=== PATIENT | female | born 1955 | race Caucasian/White ===

== ENCOUNTER 2016-09-24 21:04 | Inpatient (IN) | payer MEDICAID ==
[~2016-09-24] VITALS: Ht 167.6 cm; Wt 71.7 kg
[2016-09-24] MEDS ORDERED: LORAZEPAM 2 MG/ML VIAL IV PRN (22:45)
[2016-09-24] MEDS ORDERED: HALOPERIDOL LACT 5 MG/ML VIAL. IVP PRN (22:45)
[2016-09-24] MEDS: IV NORMAL SALINE 1000ML BAG 1,000 ML IV SCH (22:45)
[2016-09-24] MEDS ORDERED: RISP1TAB3 PO (23:14)
[2016-09-24] MEDS ORDERED: FLUC100T4 PO (23:14)
[2016-09-24] MEDS ORDERED: IBUP-1007 PO (23:14)
[2016-09-24] MEDS ORDERED: HALO10TA PO (23:14)
[2016-09-24] MEDS ORDERED: MULT-460 PO (23:14)
[2016-09-24] MEDS ORDERED: CLON1TAB3 PO (23:14)
[2016-09-24] MEDS ORDERED: HALO5TAB PO (23:14)
[2016-09-24] MEDS ORDERED: DIVA500T4 PO (23:14)
[2016-09-24 23:30] VITALS: BP 121/63
[2016-09-25 02:38] VITALS: BP 121/59
[2016-09-25] MEDS ORDERED: LORAZEPAM 2 MG/ML VIAL IM PRN (04:45)
[2016-09-25] MEDS ORDERED: HALOPERIDOL LACT 5 MG/ML VIAL. IM PRN (04:45)
[2016-09-25 07:00] VITALS: BP 147/70
[2016-09-25] MEDS ORDERED: ACETAMINOPHEN 325 MG TABLET. PO PRN ×2 (10:00→11:30)
[2016-09-25] MEDS ORDERED: ALBUTEROL SULFATE 2.5 MG/3 ML NEBU. NEB PRN (10:00)
[2016-09-25] MEDS ORDERED: ONDANSETRON PF 4 MG/2 ML VIAL. IV PRN (10:00)
[2016-09-25] MEDS ORDERED: hydrALAZINE 20 MG/ML VIAL. IVP PRN (10:00)
[2016-09-25] MEDS ORDERED: HYDROCODONE/APAP 5/325MG TABLET. PO PRN (10:00)
--- NOTE | 2016-09-25 11:11 | PDOC1 ---
History and Physical Source Source: Chart review History of Present Illness History of Present Illness A 60 Female with hx of PSYCHOSIS was trasfered from [facility] ER for oncology consultation, Pt was seen in the ER for psychosis and agitation, Pt has hx of schizophrenia, with active psychosis, and agitation. Labs in the ER showed WBC high > 112k, with lymphocytosis, so transferred to [facility] for oncology consultation. At the time of my exam this morning, she is not cooperative, agitation, " leave me alone. Chart reviewed, d/w RN, and d/w Dr Dickerson. She doesn 't need any active treatment for leucocytosis, need out pt treatment once psychosis is managed. Past Medical History Psych: Schizophrenia Social History Smoke: No Current Problem List Problem List Problems Medical Problems: (1) Leucocytosis Status: Acute Current Medications Current Medications Current Medications Medications (Trade) Dose Ordered Sig/Ciara Start Time Stop Time Status Last Admin Dose Admin Acetaminophen (Tylenol) 325 mg PRN Q6HRS PRN 09/25/16 10:00 Acetaminophen/ Hydrocodone Bitart (Lortab 5/325) 1 tab PRN Q6HRS PRN 09/25/16 10:00 Albuterol Sulfate (Ventolin Neb Soln) 2.5 mg PRN Q4HRS PRN 09/25/16 10:00 Haloperidol Lactate (Haldol) 5 mg PRN Q8HRS PRN 09/25/16 04:45 Hydralazine HCl (Apresoline) 10 mg PRN Q4HRS PRN 09/25/16 10:00 Lorazepam (Ativan) 2 mg PRN Q4HRS PRN 09/25/16 04:45 Ondansetron HCl (Zofran) 4 mg PRN Q8HRS PRN 09/25/16 10:00 Sodium Chloride (Iv Sodium Chloride 0.9% 1000ml Bag) 1,000 ml @ 75 mls/hr [id number] 09/24/16 22:45 Allergies Allergies Allergies Coded Allergies Type Severity Reaction Last Updated Verified Penicillins Allergy Intermediate 09/24/16 Yes fluphenazine Allergy Intermediate 09/24/16 Yes lithium Allergy Intermediate 09/24/16 Yes ROS Review of System headaches, agitation, no fever no chills no chest pain not able to get more than this. Physical Exam Physical Exam GEN.: No apparent distress. Alert non cooperative HEENT: Head is normocephalic, NECK: Supple. LUNGS: Clear to auscultation. HEART: RRR, S1, S2 present. Peripheral pulses intact ABDOMEN: Soft, NEUROLOGIC: PSYCHIATRIC: psychosis SKIN: Vitals Vitals Vital Signs Date Time Temp Pulse Resp B/P Pulse Ox O2 Delivery O2 Flow Rate FiO2 09/25/16 08:00 Room Air 09/25/16 07:00 98.4 70 18 147/70 98 98.4 VTE Prophylaxis Ordered VTE Prophylaxis Devices: Yes VTE Pharmacological Prophylaxi: No Assessment/Plan Assessment/Plan Schizophrenia with active psychosis CLL Mild hyponatremia Plan 1-1 sitter PRN Haldol need inpt psychiatry placement medically stable for transfer, d/w Dr Dickerson, out pt follow up for CLL once psychosis is treated and stabilized labs reviwed from [place] Prognosis guarded. . INGRID FLORIAN MD Sep 25, 2016 11:11
[2016-09-25] MEDS ORDERED: IBUPROFEN 200 MG TABLET PO PRN (11:45)
[2016-09-25] MEDS: IV NORMAL SALINE 1000ML BAG 1,000 ML IV SCH (12:00)
--- NOTE | 2016-09-25 12:57 | PDOC ---
Provider Note Provider Note Onc consult coovbmfr- [id number] 1. CLL with rapid doubling time, otherwise asymptomatic. Likely will need tx initiated in future, but active psychosis is much more pressing issue. No pressing need to start now. Consider ibrutinib as outpt, which could be given po at her facility. I am concern about her repeated missed appts because of psych issues and do not think chemo is safe to give. Will f/u as outpt. 2. Active psychosis, schizophrenia- Must be more stable before can begin tx. D/W Dr. Raines. LORA HOBSON DO Sep 25, 2016 12:57
--- NOTE | 2016-09-25 16:03 | CONS ---
DATE OF CONSULTATION: 09/25/2016 REFERRING PROVIDER: Roge Spangler M.D. REASON FOR CONSULTATION: CLL. HISTORY OF PRESENT ILLNESS: The patient is a 60-year-old female who I have seen in clinic two times for her history of CLL. She was diagnosed in 2007 with Manriquez stage 0. She has very mild thrombocytopenia, which is likely not related to the CLL and that has remained stable. She has a strong history of schizophrenia and is living in a facility for this. She has had repeated admissions for active psychoses and is therefore missed several oncology appointments with me. Her last appointment was on 08/22/2016, when I noted that she was having a fairly impressive rapid WBC doubling time. Her white blood cell count 1 month ago was 66, hemoglobin 12.5, and platelets 106. She presented to the [facility] Emergency Room last night and was noted to have a WBC of 112. Her hemoglobin and platelets remained stable. Her platelet count is now 134. She is actively psychotic again. Dr. Spangler is trying to transfer her to for inpatient psychiatric admission again. Upon seeing her in her room, she denies having a history of CLL. She states that her blood counts are low. She refuses to answer many of my questions saying "no comments." Clinically, she overall appears stable otherwise from her last him in my clinic. PAST MEDICAL HISTORY: Anxiety, schizophrenia, and CLL. PAST SURGICAL HISTORY: She denies any history. FAMILY HISTORY: She denies any health problems in her siblings or parents. SOCIAL HISTORY: She has smoked a 1/4 pack a day for 20 years. She tries to smoke "as often as she can" [place] [facility] [place]. [place] live [place] [facility] [place], but has had several admissions for active psychiatric issues. She denied any alcohol, use to me previously in clinic. ALLERGIES: PENICILLINS, FLUPHENAZINE, AND LITHIUM. CURRENT MEDICATIONS: Tylenol, Lortab, albuterol, Haldol, hydralazine, Motrin, Ativan, and Zofran. REVIEW OF SYSTEMS: Ten point review of systems attempted, but rather limited due to her active psychotic state. She says she is very fatigued and overall have weakness. She has not had any fevers or chills. She refused to answer any other questions. PHYSICAL EXAMINATION: VITAL SIGNS: Temperature 97.5, pulse 59, respiratory rate 18, blood pressure 147/70, and 98% O2 on room air. GENERAL: She appears alert. She is not in any distress at this time. HEENT: No scleral icterus. Mucous membranes are moist. CARDIOVASCULAR: Heart is regular in rate. PULMONARY: No respiratory distress. ABDOMEN: No distention. EXTREMITIES: No edema. NEUROLOGIC: No focal cranial nerve deficits site. PSYCHIATRIC: Actively psychotic, refusing to answer questions, denying known health history issues. Nursing notes reviewed, where she has previously refused to get out of the shower as well. IMAGING AND LABS: Pertinent CBC findings reviewed as above. CMP notable for sodium of 124. ASSESSMENT AND PLAN: The patient is a 60-year-old female with the following medical problems: 1. Chronic lymphocytic leukemia with rapid doubling time. She likely will need some form of treatment in the future, but there is no imminent need to start it immediately. Most likely, I would recommend starting ibrutinib as this could be orally administered at her facility. I am concerned if we give her any chemotherapy, she will be lost to follow up again and will not have adequate followup care in our clinic to assess for toxicity and future cycles of chemotherapy. The oral medication would be continued daily until progression or intolerance and is overall fairly well tolerated. However, again, her active psychotic issues must be more stable before beginning any treatment. 2. Schizophrenia with active psychoses. We are trying to transfer her to Inpatient Psychiatric Unit. Thank you for alerting me of her admission. We will plan to follow up with her when she is stable as an outpatient to initiate ibrutinib at that time. Discussed with Dr. Spangler. LORA HOBSON DO DR: LEIGH/paulino JOB#: [id number] / [id number] MTDD
[2016-09-25 19:00] VITALS: BP 120/72
[2016-09-25] MEDS ORDERED: LORAZEPAM 1 MG TABLET. PO PRN (19:45)
[2016-09-25] MEDS ORDERED: wellbutrin (20:48)
[2016-09-25] MEDS: HALOPERIDOL 5 MG TABLET PO PRN (21:53)
--- NOTE | 2016-09-25 22:38 | DS ---
DATE OF DISCHARGE: 09/25/2016 DISCHARGE DIAGNOSES: 1. Reactive psychosis with history of schizophrenia. 2. CLL. 3. Mild hyponatremia. BRIEF HOSPITAL COURSE: This 60-year-old female with prior history of schizophrenia and CLL, which was diagnosed in 2007 and she has been following oncology; however, the patient has strong history of schizophrenia and yesterday, the patient was at [place] ER for geropsychiatric admission. However, ER physician ordered labs which showed WBC is more than 112,000 and she has been transferred to [facility] for further evaluation by oncology. At the time of my examination this morning, the patient's psychosis is not letting me examine and not able to provide any good history. Most of the history obtained from the records and nursing staff. After my discussion with Dr. Dickerson, the patient needs to be transferred to the psychiatric facility for active treatment of psychosis and Dr. Dickerson would like to see her in the clinic. At this time, the patient is not a candidate to get any treatment, which will further complicate her psychological condition. I think the patient can be transferred to oncology clinic once the patient's mental status has been improved and psychosis has been controlled. At this time, she has been stable to go to inpatient psychiatric facility. Above has been discussed with immigration case worker and nurse and she will be transferred as soon as bed available. DISCHARGE MEDICATIONS: Reviewed and reconciled. Please see MRAD. DISCHARGE CONDITION: Stable. PROGNOSIS: Guarded. FOLLOWUP: With Dr. Dickerson in clinic once psychosis has been treated and stable. INGRID FLORIAN MD DR: IVONNE/paulino JOB#: [id number] / [id number] MTDD
[2016-09-26] MEDS: IV NORMAL SALINE 1000ML BAG 1,000 ML IV SCH (01:25)
[2016-09-26] MEDS: HALOPERIDOL 5 MG TABLET PO PRN (09:35)
[2016-09-26] MEDS ORDERED: ASPIRIN 325 MG TABLET PO ONE (10:15)
[2016-09-26 10:51] VITALS: BP 155/84
--- NOTE | 2016-09-26 15:16 | PDOC ---
PROGRESS NOTES Chief Complaint Chief Complaint 1. Reactive psychosis with history of schizophrenia. 2. CLL. 3. Mild hyponatremia. Plan no further work up needed from oncology 1-1 sitter transfer to in psychiatry no labs today History of Present Illness History of Present Illness no fever no chills no acute events Vitals Vitals Vital Signs Date Time Temp Pulse Resp B/P Pulse Ox O2 Delivery O2 Flow Rate FiO2 09/26/16 10:51 87 16 155/84 Room Air 09/25/16 19:00 98.0 98 98.0 Physical Exam General: Alert, Cooperative Lungs: Other (normal air flow) Extremities: No clubbing, No cyanosis Skin: No rashes, No breakdown Assessment and Plan Assessmemt and Plan Problems Medical Problems: (1) Leucocytosis Status: Acute (2) Leukocytosis, unspecified Status: Acute (3) 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 Medications Current Medications Sodium Chloride (Iv Sodium Chloride 0.9% 1000ml Bag) 1,000 ml @ 75 mls/hr [id number] IV ; Start 09/24/16 at 22:45; Stop 09/26/16 at 14:43; Status DC Lorazepam (Ativan) 2 mg PRN Q4HRS PRN IV ANXIETY / AGITATION Last administered on 09/25/16 04:39; Start 09/24/16 at 22:45; Stop 09/26/16 at 14:43; Status DC Haloperidol Lactate (Haldol) 5 mg PRN Q8HRS PRN IVP AGITATION; Start 09/24/16 at 22:45; Stop 09/26/16 at 14:43; Status DC Haloperidol Lactate (Haldol) 5 mg PRN Q8HRS PRN IM AGITATION Last administered on 09/25/16 11:59; Start 09/25/16 at 04:45; Stop 09/26/16 at 14:43; Status DC Lorazepam (Ativan) 2 mg PRN Q4HRS PRN IM ANXIETY / AGITATION; Start 09/25/16 at 04:45; Stop 09/26/16 at 14:43; Status DC Acetaminophen (Tylenol) 325 mg PRN Q6HRS PRN PO MILD PAIN / TEMP; Start at 10:00; Stop 09/25/16 at 11:26; Status DC Acetaminophen/ Hydrocodone Bitart (Lortab 5/325) 1 tab PRN Q6HRS PRN PO MODERATE TO SEVERE PAIN; Start 09/25/16 at 10:00; Stop 09/26/16 at 14:43; Status DC Hydralazine HCl (Apresoline) 10 mg PRN Q4HRS PRN IVP ELEVATED BP, SEE COMMENTS ; Start 09/25/16 at 10:00; Stop 09/26/16 at 14:43; Status DC Ondansetron HCl (Zofran) 4 mg PRN Q8HRS PRN IV NAUSEA/VOMITING; Start 09/25/16 at 10:00; Stop 09/26/16 at 14:43; Status DC Albuterol Sulfate (Ventolin Neb Soln) 2.5 mg PRN Q4HRS PRN NEB SHORTNESS OF BREATH; Start 09/25/16 at 10:00; Stop 09/26/16 at 14:43; Status DC Acetaminophen (Tylenol) 650 mg PRN Q6HRS PRN PO MILD PAIN / TEMP; Start at 11:30; Stop 09/26/16 at 14:43; Status DC Ibuprofen (Motrin) 200 mg PRN Q4HRS PRN PO INFLAMMATION Last administered on 21:53; Start 09/25/16 at 11:45; Stop 09/26/16 at 14:43; Status DC Lorazepam (Ativan) 2 mg PRN Q4HRS PRN PO ANXIETY / AGITATION Last administered on 09/25/16 21:52; Start 09/25/16 at 19:45; Stop 09/26/16 at 14:43; Status DC Haloperidol (Haldol) 5 mg PRN Q8HRS PRN PO PSYCHOSIS Last administered on 09:35; Start 09/25/16 at 19:45; Stop 09/26/16 at 14:43; Status DC Aspirin (Meghna Aspirin) 325 mg 1X ONCE PO Last administered on 09/26/16 10:23 ; Start 09/26/16 at 10:15; Stop 09/26/16 at 10:16; Status DC Active Scripts Active Reported [wellbutrin] Risperidone 1 Mg Tablet 1 Mg PO DAILY Depakote Er (Divalproex Sodium) 500 Mg Tab.er.24h 1 Tab PO HS Fluconazole 100 Mg Tablet 1.5 Tab PO DAILY Multiple Vitamin (Multivitamin With Minerals) 1 Each Tablet 1 Each PO Ibuprofen 600 Mg Tablet 600 Mg PO PRN Q6HRS PRN Haloperidol 10 Mg Tablet 1 Tab PO QHS Haloperidol 5 Mg Tablet 1 Tab PO BID take 0800 and 1200 Clonazepam 1 Mg Tablet 1 Tab PO BID Vitals/I & O Vital Sign - Last 24 Hours 09/25/16 09/25/16 09/26/16 09/26/16 19:00 20:00 08:00 10:51 Temp 98.0 98.0 Pulse 68 87 Resp 18 16 B/P 120/72 155/84 Pulse Ox 98 O2 Delivery Room Air Room Air Room Air Room Air Intake and Output 09/25/16 09/25/16 09/26/16 15:00 23:00 07:00 Intake Total 1640 ml 920 ml Output Total 1 ml Balance 1640 ml 919 ml INGRID FLORIAN MD Sep 26, 2016 15:16
== END 2016-09-26 13:00 | DRG 641 ==
LOC: 6 SOUTH 22:32
PROVIDERS: ADMIT Internal Medicine; ATTEND Internal Medicine
DX: E87.1 Hypo-osmolality and hyponatremia (principal); C91.10 Chronic lymphocytic leukemia of B-cell type not having achieved remission; D69.6 Thrombocytopenia, unspecified; F91.9 Conduct disorder, unspecified; F41.9 Anxiety disorder, unspecified; Z79.899 Other long term (current) drug therapy; Z87.891 Personal history of nicotine dependence; Z88.8 Allergy status to other drugs, medicaments and biological substances; Z88.1 Allergy status to other antibiotic agents; Z88.0 Allergy status to penicillin; F25.9 Schizoaffective disorder, unspecified
CPT/HCPCS: 94760; J1630; J2060

== ENCOUNTER 2017-09-30 16:15 | Inpatient (IN) | payer MEDICAID ==
[2017-09-30 17:21] LABS: INFLUENZA A PATIENT NEGATIVE (NEGATIVE); INFLUENZA B PATIENT NEGATIVE (NEGATIVE); OBC FLU VALID
[2017-09-30] MEDS: IV NORMAL SALINE 1000ML BAG 1,000 ML IV ×4 (17:52→19:31)
[2017-09-30 18:21] LABS: BASO # 0.5 x10^3/uL (0.0-0.2); BASO % 0 % (0-3); EOS # 0.4 x10^3/uL (0.0-0.7); EOS % 0 % (0-3); HEMOGLOBIN 10.9 g/dL (12.0-15.5); LYMPH # 219.3 x10^3/uL (1.0-4.8); LYMPH % 85 % (24-48); MEAN CORPUSCULAR HEMOGLOBIN 28 pg (25-35); MEAN CORPUSCULAR HGB CONC 33 g/dL (31-37); MEAN CORPUSCULAR VOLUME 84 fL (79-100); MONO # 0.3 x10^3/uL (0.0-1.1); MONO % 0 % (0-9); NEUT # 39.1 x10^3uL (1.8-7.7); NEUT % 15 % (31-73); PLATELET COUNT 293 x10^3/uL (140-400); RED BLOOD COUNT 3.95 x10^6/uL (3.50-5.40)
[2017-09-30 18:26] LABS: WHITE BLOOD COUNT 259.6 x10^3/uL (4.0-11.0)
[2017-09-30 18:36] LABS: ADD MAN DIFF? YES
[2017-09-30 18:50] LABS: TROPONINI < 0.017 ng/mL (0.000-0.055)
[2017-09-30 18:51] LABS: LACTIC ACID 1.5 mmol/L (0.4-2.0)
[2017-09-30 18:57] LABS: ALBUMIN 2.4 g/dL (3.4-5.0); ALBUMIN/GLOBULIN RATIO 0.6 (1.0-1.7); ALK PHOS 295 U/L (46-116); ALT (SGPT) 136 U/L (14-59); ANION GAP 11 (6-14); AST (SGOT) 128 U/L (15-37); BILIRUBIN,URINE NEGATIVE (NEG); BLOOD UREA NITROGEN 17 mg/dL (7-20); BUN/CREATININE RATIO 21 (6-20); CARBON DIOXIDE 22 mmol/L (21-32); CHLORIDE 87 mmol/L (98-107); CLARITY,URINE CLEAR; COLOR,URINE YELLOW; CREATININE 0.8 mg/dL (0.6-1.0); GFR 72.7; GLUCOSE 243 mg/dL (70-99); GLUCOSE,URINE >=1000 mg/dL (NEG); NITRITE,URINE NEGATIVE (NEG); POTASSIUM 4.2 mmol/L (3.5-5.1); PROTEIN,URINE 100 mg/dL (NEG-TRACE); TOTAL BILIRUBIN 1.3 mg/dL (0.2-1.0); TOTAL PROTEIN 6.7 g/dL (6.4-8.2)
[2017-09-30 19:06] LABS: SODIUM 120 mmol/L (136-145)
[2017-09-30] MEDS ORDERED: VANCOMYCIN 1.75 GM in IV DEXTROSE 5% 500 ML IV (19:15)
[2017-09-30] MEDS ORDERED: ONDANSETRON PF 4 MG/2 ML VIAL. IV ×2 (19:15)
[2017-09-30] MEDS ORDERED: VANCOMYCIN PER PHARMACY MC ×2 (19:15)
[2017-09-30 19:16] LABS: % ATYL 5 % (0-0); % LYMPHS 86 % (24-48); % MONOS 1 % (0-10)
[2017-09-30 19:17] LABS: PLT ESTIMATE ADEQUATE (ADEQUATE); SMUDGE CELLS PRESENT
[2017-09-30 19:18] LABS: BACTERIA,URINE 0 /HPF (0-FEW); RBC,URINE 0 /HPF (0-2); SQUAMOUS EPITHELIAL CELL,UR FEW /LPF; WBC,URINE RARE /HPF (0-4)
[2017-09-30 19:19] LABS: AMORPHOUS SEDIMENT,UR PRESENT /HPF; ANISOCYTOSIS SLIGHT
[2017-09-30] MEDS: OSELTAMIVIR 75 MG CAPSULE PO ×2 (19:32)
[2017-09-30] MEDS: ACETAMINOPHEN 500 MG TABLET PO ×2 (19:32)
[2017-09-30] MEDS: MEROPENEM IV Push 1 GM VIAL. IVP ×2 (19:36)
[2017-09-30] MEDS: VANCOMYCIN 1.75 GM in IV DEXTROSE 5 %-0.2 % NACL 500 ML IV (19:39)
[2017-09-30] MEDS: VANCOMYCIN PER PHARMACY MC ×2 (20:55)
[2017-09-30 21:23] LABS: LACTIC ACID 1.1 mmol/L (0.4-2.0)
[2017-09-30] MEDS ORDERED: MEROPENEM 1 GM in IV NORMAL SALINE 100ML 100 ML IV ×4 (22:00)
[2017-10-01] MEDS: MEROPENEM IV Push 1 GM VIAL. IVP ×6 (06:02→22:00)
[2017-10-01 07:22] LABS: ADD MAN DIFF? NO
[2017-10-01 07:51] LABS: BASO # 0.7 x10^3/uL (0.0-0.2); BASO % 0 % (0-3); EOS # 0.3 x10^3/uL (0.0-0.7); EOS % 0 % (0-3); HEMOGLOBIN 10.5 g/dL (12.0-15.5); LYMPH # 184.8 x10^3/uL (1.0-4.8); LYMPH % 76 % (24-48); MEAN CORPUSCULAR HEMOGLOBIN 28 pg (25-35); MEAN CORPUSCULAR HGB CONC 33 g/dL (31-37); MEAN CORPUSCULAR VOLUME 84 fL (79-100); MONO # 8.9 x10^3/uL (0.0-1.1); MONO % 4 % (0-9); NEUT # 48.1 x10^3uL (1.8-7.7); NEUT % 20 % (31-73); PLATELET COUNT 286 x10^3/uL (140-400); RED BLOOD COUNT 3.82 x10^6/uL (3.50-5.40); RED CELL DISTRIBUTION WIDTH 15.8 % (11.5-14.5)
[2017-10-01 07:53] LABS: TROPONINI < 0.017 ng/mL (0.000-0.055)
[2017-10-01 08:03] LABS: WHITE BLOOD COUNT 242.8 x10^3/uL (4.0-11.0)
[2017-10-01 09:57] LABS: % SEGS 8 % (35-66)
[2017-10-01] MEDS: VANCOMYCIN 1 GM in IV DEXTROSE 5% 250 ML IV ×2 (10:16→20:00)
[2017-10-01] MEDS: VANCOMYCIN PER PHARMACY MC ×2 (10:33)
[2017-10-01] MEDS ORDERED: HALOPERIDOL 2 MG TABLET. PO ×2 (22:45)
[2017-10-01] MEDS: LINEZOLID 600 MG TABLET PO ×2 (23:02)
[2017-10-01] MEDS: HALOPERIDOL 5 MG TABLET. PO ×6 (23:02→23:03)
[2017-10-02] MEDS: ACETAMINOPHEN 325 MG TABLET. PO ×2 (01:10)
[2017-10-02] MEDS: MEROPENEM IV Push 1 GM VIAL. IVP ×2 (06:00)
[2017-10-02 08:03] LABS: ALBUMIN 2.5 g/dL (3.4-5.0); ALBUMIN/GLOBULIN RATIO 0.7 (1.0-1.7); ALK PHOS 272 U/L (46-116); ALT (SGPT) 152 U/L (14-59); ANION GAP 12 (6-14); AST (SGOT) 94 U/L (15-37); BLOOD UREA NITROGEN 21 mg/dL (7-20); BUN/CREATININE RATIO 26 (6-20); CALCIUM 8.7 mg/dL (8.5-10.1); CARBON DIOXIDE 23 mmol/L (21-32); CHLORIDE 90 mmol/L (98-107); CREATININE 0.8 mg/dL (0.6-1.0); GFR 72.7; GLUCOSE 307 mg/dL (70-99); SODIUM 125 mmol/L (136-145); TOTAL BILIRUBIN 0.8 mg/dL (0.2-1.0)
[2017-10-02] MEDS: HALOPERIDOL 5 MG TABLET. PO ×4 (09:00→10:55)
[2017-10-02] MEDS ORDERED: ONDANSETRON PF 4 MG/2 ML VIAL. IV ×2 (09:45)
[2017-10-02] MEDS ORDERED: ONDANSETRON ODT 4 MG TAB.RAPDIS. PO ×2 (09:45)
[2017-10-02] MEDS ORDERED: IV NORMAL SALINE 1000ML BAG 1,000 ML IV ×2 (10:00)
[2017-10-02] MEDS: LINEZOLID 600 MG TABLET PO ×2 (10:55)
[2017-10-02] MEDS ORDERED: LACTOBACILLUS RHAMNOSUS GG 1 CAPSULE. PO ×2 (21:00)
[2017-10-02 22:15] LABS: SPECIMEN SOURCE Urine (.); STREP PNEUMO ANTIGEN Positive (Negative)
== END 2017-10-02 14:40 | DRG 871 ==
LOC: ER 16:15 → ED HOLD 19:17 → 6 SOUTH 22:07
DX: A41.9 Sepsis, unspecified organism (principal); E43 Unspecified severe protein-calorie malnutrition; J18.9 Pneumonia, unspecified organism; C91.10 Chronic lymphocytic leukemia of B-cell type not having achieved remission; E86.1 Hypovolemia; E87.1 Hypo-osmolality and hyponatremia; F20.9 Schizophrenia, unspecified; F91.9 Conduct disorder, unspecified; I10 Essential (primary) hypertension; M53.3 Sacrococcygeal disorders, not elsewhere classified; D64.9 Anemia, unspecified; Z79.899 Other long term (current) drug therapy; Z91.19 Patient's noncompliance with other medical treatment and regimen; Z88.0 Allergy status to penicillin; Z88.8 Allergy status to other drugs, medicaments and biological substances; Z68.22 Body mass index [BMI] 22.0-22.9, adult
CPT/HCPCS: 36415; 71046; 74018; 80053; 81001; 83605; 84484; 85007; 85025; 87040; 87205; 87449; 87804; 87804-59; 93005; 96361; 96365; 96375; 99285-25; J2185; J3370; J7030

== ENCOUNTER 2018-01-01 17:48 | Emergency (ER) | payer MEDICAID ==
[2018-01-01 18:33] LABS: BILIRUBIN,URINE NEGATIVE (NEG); CLARITY,URINE CLEAR; COLOR,URINE YELLOW; GLUCOSE,URINE 100 mg/dL (NEG); NITRITE,URINE NEGATIVE (NEG); PH,URINE 5.5; PROTEIN,URINE NEGATIVE (NEG-TRACE); UROBILINOGEN,URINE 0.2 mg/dL (0.2 mg/dL)
[2018-01-01 18:41] LABS: BACTERIA,URINE 0 /HPF (0-FEW); RBC,URINE OCC /HPF (0-2); SQUAMOUS EPITHELIAL CELL,UR OCC /LPF
[2018-01-03 14:30] LABS: CHLAMYDIA PROBE Negative (Negative); GC PROBE Negative (Negative)
== END 2018-01-01 21:00 | disposition home or self-care (01) ==
LOC: ER 17:48
DX: Z71.1 Person with feared health complaint in whom no diagnosis is made (principal); F20.9 Schizophrenia, unspecified (principal); T19.2XXA Foreign body in vulva and vagina, initial encounter; Z88.0 Allergy status to penicillin; Z90.711 Acquired absence of uterus with remaining cervical stump; Z87.440 Personal history of urinary (tract) infections; Z88.8 Allergy status to other drugs, medicaments and biological substances; X58.XXXA Exposure to other specified factors, initial encounter; Y93.89 Activity, other specified; Y92.89 Other specified places as the place of occurrence of the external cause; Y99.8 Other external cause status
CPT/HCPCS: 74018; 81001; 87086; 87491; 87591; 99285; Q0111

== ENCOUNTER 2018-05-16 17:31 | Inpatient (IN) | payer MEDICAID ==
[~2018-05-16] VITALS: Ht 162.6 cm; Wt 56.5 kg
[~2018-05-16 17:31] MED LIST: ACET325T9 PO; CLON1TAB4 PO; DIVA500T4 PO; FLUC100T4 PO; HALO10TA PO; HALO5TAB PO; IBUP-1007 PO; LEVO500T59 PO; LINE600T PO; MAG360OR24 PO; MINE114O TP; MULT-460 PO; NICO2GUM5 BC; ONDA4TAB10 SL; POLY17PO29 PO; RISP1TAB3 PO; wellbutrin
[2018-05-16] MEDS ORDERED: HALOPERIDOL LACTATE 5 MG/ML VIAL. IVP ONE (18:00)
--- NOTE | 2018-05-16 19:11 | PHYS DOC ---
Past Medical History Past Medical History: Constipation, Schizophrenia, UTI, Other Additional Past Medical Histor: MYELODYSPLASTIC SYNDROME, TINEA PEDIS Alcohol Use: None Drug Use: None Adult General Chief Complaint Chief Complaint: PSYCH EVALUATION HPI HPI Patient is a 62 year old female who presents with exacerbation of her schizophrenia. The patient is currently in a psychiatric facility and is on hospice for leukemia. The patient does have a history of aggression with her schizophrenia. Hospice had taken her off of her schizophrenia medications. The patient has not been medicated for months. She is currently very agitated and manic. She is not cooperative and will not allow vital signs to be taken. Review of Systems Review of Systems Constitutional: Denies fever or chills [] Eyes: Denies change in visual acuity, redness, or eye pain [] HENT: Denies nasal congestion or sore throat [] Respiratory: Denies cough or shortness of breath [] Cardiovascular: No additional information not addressed in HPI [] GI: Denies abdominal pain, nausea, vomiting, bloody stools or diarrhea [] : Denies dysuria or hematuria [] Musculoskeletal: Denies back pain or joint pain [] Integument: Denies rash or skin lesions [] Neurologic: Denies headache, focal weakness or sensory changes [] Endocrine: Denies polyuria or polydipsia [] All other systems were reviewed and found to be within normal limits, except as documented in this note. Current Medications Current Medications Current Medications Medications (Trade) Dose Ordered Sig/Ciara Start Time Stop Time Status Last Admin Dose Admin Haloperidol Lactate (Haldol Inj) 5 mg 1X ONCE 05/16/18 18:00 05/16/18 18:01 DC 05/16/18 18:00 5 MG Ziprasidone (Geodon Im) 20 mg 1X ONCE 05/16/18 19:15 05/16/18 19:16 DC 05/16/18 19:15 20 MG Allergies Allergies Allergies Coded Allergies Type Severity Reaction Last Updated Verified Penicillins Allergy Intermediate "it makes me get fevers" last dose age 11 per pt 09/30/17 Yes fluphenazine Allergy Intermediate 09/24/16 Yes lithium Allergy Intermediate 09/24/16 Yes Physical Exam Physical Exam Constitutional: Well developed, well nourished, no acute distress, non-toxic appearance. [] HENT: Normocephalic, atraumatic, bilateral external ears normal, oropharynx moist, no oral exudates, nose normal. [] Eyes: PERRLA, EOMI, conjunctiva normal, no discharge. [] Neck: Normal range of motion, no tenderness, supple, no stridor. [] Cardiovascular:Heart rate regular rhythm, no murmur [] Lungs & Thorax: Bilateral breath sounds clear to auscultation [] Abdomen: Bowel sounds normal, soft, no tenderness, no masses, no pulsatile masses. [] Skin: Warm, dry, no erythema, no rash. [] Back: No tenderness, no CVA tenderness. [] Extremities: No tenderness, no cyanosis, no clubbing, ROM intact, no edema. [] Neurologic: Alert and oriented X 3, normal motor function, normal sensory function, no focal deficits noted. [] Psychologic: The patient is agitated and manic Current Patient Data Vital Signs Vital Signs Date Time Temp Pulse Resp B/P (MAP) Pulse Ox O2 Delivery O2 Flow Rate FiO2 05/16/18 17:31 98.0 100 16 131/73 (92) Room Air 98.0 EKG EKG [] Radiology/Procedures Radiology/Procedures [] Course & Med Decision Making Course & Med Decision Making Pertinent Labs and Imaging studies reviewed. (See chart for details) The patient received 5 mg of Haldol in the emergency department and has 20 mg of Geodon ordered. She has been accepted to Dr. Humphreys's service for admission. Dragon Disclaimer Dragon Disclaimer This electronic medical record was generated, in whole or in part, using a voice recognition dictation system. Departure Departure Impression: Primary Impression: Psychosis in elderly with behavioral disturbance Additional Impression: Schizophrenia Disposition: ADMITTED INPATIENT Admitting Physician: Kristen Humphreys Condition: GUARDED Referrals: VALERIA GARCIA (PCP) Attending Signature Attending Signature I have reviewed the PA/MAINTENANCE PAINTER's note and plan of care. I was available for consultation as needed during the patient's visit in the emergency department. I agree with the clinical impression, plan, and disposition. Problem Qualifiers TONY SOLANO APRN May 16, 2018 19:11 HEIDE ENGEL DO May 18, 2018 04:17
[2018-05-16] MEDS ORDERED: ZIPRASIDONE IM 20 MG VIAL. IM ONE (19:15)
[2018-05-16] MEDS ORDERED: ONDANSETRON ODT 4 MG TAB.RAPDIS. PO PRN (19:45)
[2018-05-16] MEDS ORDERED: PROCHLORPERAZINE 25 MG SUPP.RECT. PR PRN (19:45)
[2018-05-16] MEDS ORDERED: MORPHINE SULFATE 2 MG/ML VIAL. IV PRN (19:45)
[2018-05-16] MEDS ORDERED: ONDANSETRON PF 4 MG/2 ML VIAL. IV PRN (19:45)
[2018-05-16] MEDS ORDERED: MAG HYDROX/ALUMINUM HYD/SIMETH 30 ML ORAL.SUSP PO PRN (19:45)
[2018-05-16] MEDS ORDERED: HALOPERIDOL LACTATE 5 MG/ML VIAL. IVP PRN (19:45)
[2018-05-16] MEDS ORDERED: PROCHLORPERAZINE 10 MG/2 ML VIAL. IV PRN (19:45)
[2018-05-16] MEDS ORDERED: KETOROLAC 30 MG/ML VIAL. IV PRN (19:45)
[2018-05-16] MEDS ORDERED: MAGNESIUM HYDROXIDE 2,400 MG/30 ML ORAL.SUSP. PO PRN (19:45)
[2018-05-16] MEDS ORDERED: IBUPROFEN 400 MG TABLET. PO PRN (19:45)
[2018-05-16] MEDS ORDERED: ACETAMINOPHEN 325 MG TABLET. PO PRN ×2 (19:45→22:45)
[2018-05-16] MEDS ORDERED: CALCIUM CARBONATE 500 MG TAB.CHEW PO PRN (19:45)
[2018-05-16] MEDS ORDERED: NICOTINE POLACRILEX 2MG GUM PACKAGE of 12. BC PRN (20:15)
[2018-05-16] MEDS ORDERED: HALOPERIDOL PO SCH (21:00)
[2018-05-16] MEDS ORDERED: HALOPERIDOL LACTATE 5 MG/ML VIAL. IM PRN (23:15)
[2018-05-17] MEDS ORDERED: ACETAMINOPHEN 325 MG TABLET. PO SCH
[2018-05-17] MEDS ORDERED: POLYETHYLENE GLYCOL 3350 17 GM PACKET. PO PRN (09:00)
[2018-05-17] MEDS ORDERED: HALOPERIDOL 5 MG TABLET. PO SCH ×2 (09:00→21:00)
[2018-05-17] MEDS: MULTIVITAMIN with MINERAL TABLET. PO SCH (09:00)
[2018-05-17] MEDS ORDERED: ENOXAPARIN 40 MG/0.4 ML SYRINGE. SQ SCH (09:00)
--- NOTE | 2018-05-17 11:40 | PDOC1 ---
History and Physical Date of Admission Date of Admission DATE: 05/17/18 TIME: 11:34 Identification/Chief Complaint Chief Complaint psychosis Source Source: Caregiver, Chart review History of Present Illness History of Present Illness 62-year-old female came from [facility] in [facility] , is overtly psychotic, was transferred here to [facility] because apparently [facility] could not "deal with her". They wanted her transferred to [facility] but [facility] would not accept because she is on hospice for leukemia. She is refusing basic labs. Based on old records , her white count was 200,000 in September 2017. She is not being given meds for hospice at [facility]? Basically we will just keep her throughout the weekend until social work/case management can figure out where we can need to send her. She needs intensive psych. She is fighting me or at least argumentative. She thinks she is in [place], she presses the issues that it is a Saturday not a Saturday. Otherwise obi ate her whole tray, ambulating fine. I can DC her Lovenox shots. She did get 20 mg of Geodon at the ER because of aggressiveness and psychosis at the ER. 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 Status: Acute Current Medications Current Medications Current Medications Haloperidol Lactate (Haldol Inj) 5 mg 1X ONCE IVP Last administered on at 18:00; Start 05/16/18 at 18:00; Stop 05/16/18 at 18:01; Status DC Ziprasidone (Geodon Im) 20 mg 1X ONCE IM Last administered on 05/16/18at 19:15 ; Start 05/16/18 at 19:15; Stop 05/16/18 at 19:16; Status DC Ondansetron HCl (Zofran) 4 mg PRN Q6HRS PRN IV NAUSEA/VOMITING 1ST CHOICE; Start 05/16/18 at 19:45 Prochlorperazine Edisylate (Compazine) 10 mg PRN Q6HRS PRN IV NAUSEA/VOMITING 2ND CHOICE; Start 05/16/18 at 19:45 Prochlorperazine (Compazine) 25 mg PRN Q12HR PRN SD NAUSEA/VOMITING; Start at 19:45 Al Hydroxide/Mg Hydroxide (Mylanta Plus Xs) 30 ml PRN Q3HRS PRN PO HEARTBURN / GAS; Start 05/16/18 at 19:45 Calcium Carbonate/ Glycine (Tums) 500 mg PRN Q3HRS PRN PO UPSET STOMACH; Start 05/16/18 at 19:45 Zolpidem Tartrate (Ambien) 5 mg PRN QHS PRN PO INSOMNIA, MAY REPEAT IN 1HR; Start 05/16/18 at 19:45 Oxycodone HCl (Roxicodone) 5 mg PRN Q3HRS PRN PO MODEARTE - SEVERE PAIN; Start 05/16/18 at 19:45 Morphine Sulfate (Morphine Sulfate) 2 mg PRN Q2HR PRN IV PAIN MILD; Start 05/16 at 19:45 Ketorolac Tromethamine (Toradol 30mg Vial) 30 mg PRN Q6HRS PRN IV PAIN PREVENTION/INFLAMMATION; Start 05/16/18 at 19:45; Stop 05/21/18 at 19:44 Acetaminophen (Tylenol) 650 mg PRN Q6HRS PRN PO Headaches, Temp > 101.5F; Start 05/16/18 at 19:45 Ibuprofen (Motrin) 400 mg PRN Q6HRS PRN PO MILD PAIN; Start 05/16/18 at 19:45 Magnesium Hydroxide (Milk Of Magnesia) 2,400 mg PRN Q12HR PRN PO CONSTIPATION 2ND CHOICE; Start 05/16/18 at 19:45 Enoxaparin Sodium (Lovenox 40mg Syringe) 40 mg DAILY SQ ; Start 05/17/18 at 09: 00 Haloperidol Lactate (Haldol Inj) 5 mg PRN Q6HRS PRN IVP AGITATION; Start at 19:45; Stop 05/16/18 at 23:01; Status DC Lorazepam (Ativan) 4 mg PRN Q2HRS PRN IV ANXIETY / AGITATION; Start 05/16/18 at 19:45; Stop 05/16/18 at 23:01; Status DC Acetaminophen (Tylenol) 325 mg Q6HRS PO ; Start 05/17/18 at 00:00; Status UNV Haloperidol (Haldol) 5 mg DAILY PO ; Start 05/17/18 at 09:00; Stop 05/17/18 at 10:02; Status DC Ondansetron HCl (Zofran Odt) 4 mg PRN Q4HRS PRN PO NAUSEA/VOMITING 1ST CHOICE; Start 05/16/18 at 19:45 Non-Formulary Medication (Haloperidol ) 25 mg QHS PO ; Start 05/16/18 at 21:00; Stop 05/17/18 at 10:02; Status DC Multivitamins (Thera M Plus) 1 tab DAILY PO ; Start 05/17/18 at 09:00 Nicotine Polacrilex (Nicorette Gum) 1 each PRN Q1HR PRN BC SMOKING CESSATION; Start 05/16/18 at 20:15 Polyethylene Glycol (miraLAX PACKET) 17 gm PRN DAILY PRN PO CONSTIPATION 1ST CHOICE; Start 05/17/18 at 09:00 Acetaminophen (Tylenol) 650 mg PRN Q4HRS PRN PO FEVER; Start 05/16/18 at 22:45 ; Stop 05/17/18 at 22:44; Status UNV Haloperidol Lactate (Haldol Inj) 5 mg PRN Q6HRS PRN IM AGITATION; Start at 23:15 Lorazepam (Ativan) 4 mg PRN Q2HRS PRN IM ANXIETY / AGITATION; Start 05/16/18 at 23:15 Haloperidol (Haldol) 5 mg BID PO ; Start 05/17/18 at 21:00 Active Scripts Active Zyvox (Linezolid) 600 Mg Tablet 600 Mg PO BID 7 Days Levaquin (Levofloxacin) 500 Mg Tablet 1 Tab PO DAILY Reported Absorbase Ointment (Mineral Oil/Petrolatum,White) 114 Gm Oint...g. 114 Gm TP Alum-Mag Hydroxide-Simeth Liq (Mag Hydrox/Al Hydrox/Simeth) 360 Ml Oral.susp 360 Ml PO Zofran Odt (Ondansetron) 4 Mg Tab.rapdis 1 Tab SL Q4HRS Tylenol (Acetaminophen) 325 Mg Tablet 325 Mg PO Q6HRS Nicorette (Nicotine Polacrilex) 2 Mg Gum 2 Mg BC PRN Q1HR PRN Miralax (Polyethylene Glycol 3350) 17 Gm Powd.pack 1 Pkt PO DAILY PRN Multiple Vitamin (Multivitamin With Minerals) 1 Each Tablet 1 Each PO DAILY Ibuprofen 600 Mg Tablet 600 Mg PO PRN Q6HRS PRN Haloperidol 10 Mg Tablet 25 Mg PO QHS Haloperidol 5 Mg Tablet 5 Mg PO DAILY take 0800 and 1200 Allergies Allergies: Coded Allergies: Penicillins (Verified Allergy, Intermediate, "it makes me get fevers" last dose age 11 per pt, 09/30/17) fluphenazine (Verified Allergy, Intermediate, 09/24/16) lithium (Verified Allergy, Intermediate, 09/24/16) ROS Review of System Limited because of psychosis, uncooperativity Physical Exam General: Alert, Oriented X3, Cooperative, No acute distress, Other (psychotic in terms of conversation with her) HEENT: Atraumatic, PERRLA Lungs: Clear to auscultation, Normal air movement Heart: S1S2, RRR, no thrills, no rubs, no gallops, no murmurs, murmurs Cardiovascular: S1, S2 Breasts: Normal, Rt breast nml w/o mass, Lt breast nml w/o mass, Nipples normal Abdomen: Normal bowel sounds, Soft, No tenderness, No hepatosplenomegaly, No masses Rectal Exam: not examined PELVIC: Nml ext vulva Extremities: No clubbing, No cyanosis, No edema, Normal pulses, No tenderness/ swelling Skin: No rashes, No breakdown, No significant lesion Neuro: Normal gait, Normal speech, Strength at 5/5 X4 ext, Normal tone, Sensation intact, Cranial nerves 3-12 NL, Reflexes 2+ Psych/Mental Status: Other (psychotic, seems to be paranoid based on demeanor and body language) Vitals Vitals Vital Signs Date Time Temp Pulse Resp B/P (MAP) Pulse Ox O2 Delivery O2 Flow Rate FiO2 05/17/18 08:30 Room Air 05/16/18 17:31 98.0 100 16 131/73 (92) 98.0 VTE Prophylaxis Ordered VTE Prophylaxis Devices: Yes VTE Pharmacological Prophylaxi: Yes Assessment/Plan Assessment/Plan Psychosis Paranoia Mood disorder Leukemia on hospice Plan: Await social work/case management on Saturday - plans/issues Supportive care I'm awaiting home meds She refuses basic labs-WBC was 200,000 in September 2017 NORBERTO Marsh MD May 17, 2018 11:40
[2018-05-17] MEDS ORDERED: HYDR25TA PO (13:18)
[2018-05-17] MEDS ORDERED: MORPHINE SULFATE PO (13:18)
[2018-05-17] MEDS ORDERED: LORA2ORA7 IM (13:18)
[2018-05-17] MEDS ORDERED: HYDR-2758 PO (13:18)
--- NOTE | 2018-05-17 13:23 | PDOC3 ---
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 Noe is a 62 old [sex] who presented with [ ] 62-year-old female came from [facility] in [facility] , is overtly psychotic, was transferred here to [facility] because apparently [facility] could not "deal with her". They wanted her transferred to [facility] but [facility] would not accept because she is on hospice for leukemia. She is refusing basic labs. Based on old records , her white count was 200,000 in September 2017. She is not being given meds for hospice at [facility]? Basically we will just keep her throughout the weekend until social work/case management can figure out where we can need to send her. She needs intensive psych. She is fighting me or at least argumentative. She thinks she is in [place], she presses the issues that it is a Saturday not a Saturday. Otherwise she ate her whole tray, ambulating fine. I can DC her Lovenox shots. She did get 20 mg of Geodon at the ER because of aggressiveness and psychosis at the ER. COURSE; Seen by PAT team, go back tp psych in [place] and they need to modify goals/hospice etc appropriately to address her issues. MEDICALLY STABLE NO MEDICAL REASON TO BE IN AN ACUTE CARE HOSPITAL SETTING - ER YESTERDAY Discharge Information Condition at Discharge: Stable Disposition/Orders: Other ([facility]nu hospice) Scheduled Acetaminophen (Tylenol) 325 Mg Tablet, 325 MG PO Q6HRS for PAIN, #2 (Reported) Entered as Reported by: MAKEDA ROWELL on 09/30/172235 Last Action: Reviewed on 05/17/181317 by KATHI OLIVA Haloperidol (Haloperidol) 10 Mg Tablet, 10 MG PO BID, #30 Ref 2 (Reported) Entered as Reported by: Cheryl Manzanares on 09/24/162313 Last Action: Edited on 05/17/181317 by KATHI OLIVA Ondansetron (Zofran Odt) 4 Mg Tab.rapdis, 1 TAB SL Q4HRS for VOMITING, #15 ( Reported) Entered as Reported by: MAKEDA ROWELL on 09/30/172235 Last Action: Reviewed on 05/17/181317 by KATHI OLIVA Scheduled PRN Haloperidol (Haloperidol) 5 Mg Tablet, 5 MG PO PRN Q6HRS PRN for ANXIETY / AGITATION, #60 Ref 1 (Reported) take 0800 and 1200 Entered as Reported by: Cheryl Manzanares on 09/24/162313 Last Action: Edited on 05/17/181317 by KATHI OLIVA Hydrocodone Bit/Acetaminophen (Hydrocodone-Apap 5-325 ) 1 Each Tablet, 1 TAB PO PRN Q4HRS PRN for PAIN, Ref 0 (Reported) Entered as Reported by: KATHI OLIVA on 05/17/181317 Last Action: New Order on 05/17/181317 by KATHI OLIVA Hydroxyzine Hcl (Hydroxyzine Hcl) 25 Mg Tablet, 1 TAB PO PRN Q4HRS PRN for ITCHING, #30 (Reported) Entered as Reported by: KATHI OLIVA on 05/17/181317 Last Action: New Order on 05/17/181317 by KATHI OLIVA Ibuprofen (Ibuprofen) 600 Mg Tablet, 600 MG PO PRN Q6HRS PRN for INFLAMMATION, ( Reported) Entered as Reported by: Cheryl Manzanares on 09/24/162313 Last Action: Reviewed on 05/17/181317 by KATHI OLIVA Lorazepam (Lorazepam Intensol) 2 Mg/1 Ml Oral.conc, 2 MG IM PRN Q4HRS PRN for ANXIETY / AGITATION, (Reported) Entered as Reported by: KATHI OLIVA on 05/17/181317 Last Action: New Order on 05/17/181317 by KATHI OLIVA Mag Hydrox/Al Hydrox/Simeth (Alum-Mag Hydroxide-Simeth Liq) 360 Ml Oral.susp, 360 ML PO PRN Q4HRS PRN for CONSTIPATION, (Reported) Entered as Reported by: MAKEDA ROWELL on 09/30/172235 Last Action: Edited on 05/17/181317 by KATHI OLIVA Nicotine Polacrilex (Nicorette) 2 Mg Gum, 2 MG BC PRN Q1HR PRN for SMOKING CESSATION, (Reported) Entered as Reported by: MAKEDA ROWELL on 09/30/172235 Last Action: Reviewed on 05/17/181317 by KATHI OLIVA Polyethylene Glycol 3350 (Miralax) 17 Gm Powd.pack, 1 PKT PO DAILY PRN for CONSTIPATION, (Reported) Entered as Reported by: MAKEDA ROWELL on 09/30/172235 Last Action: Reviewed on 05/17/181317 by KATHI OLIVA [Morphine Sulfate ] , 0.5 ML PO PRN Q4HRS PRN for PAIN, (Reported) Entered as Reported by: KATHI OLIVA on 05/17/181317 Last Action: New Order on 05/17/181317 by NORBERTO JONES MD May 17, 2018 13:23
--- NOTE | 2018-05-17 13:25 | DISCH ---
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 Status: Acute CONDITION ON DISCHARGE: Stable CODE STATUS: Code Status: Full CUSTODIAL: SNF STAY <30 DAYS: No HOSPICE: HOSPICE: Yes HOSPICE EVAL & TREAT: Yes POST DISCHARGE ORDERS: ACTIVITY ORDERS: No restrictions WEIGHT BEARING STATUS: No restrictions DIET AFTER DISCHARGE: Regular TREATMENT/EQUIPMENT ORDERS: ADAPTIVE EQUIPMENT NEEDED: None Physical Therapy For: Other: (no pt or OT needs) DISCHARGE MEDICATIONS: Home Meds Reported Medications [Morphine Sulfate ] No Conflict Check, 0.5 ML PO PRN Q4HRS PRN for PAIN 05/17/18 Lorazepam (LORAZEPAM INTENSOL) 2 Mg/1 Ml Oral.conc, 2 MG IM PRN Q4HRS PRN for ANXIETY / AGITATION, MISC 05/17/18 Hydroxyzine Hcl (HYDROXYZINE HCL) 25 Mg Tablet, 1 TAB PO PRN Q4HRS PRN for ITCHING, #30 TAB 05/17/18 Hydrocodone Bit/Acetaminophen (HYDROCODONE-APAP 5-325 ) 1 Each Tablet, 1 TAB PO PRN Q4HRS PRN for PAIN, TAB 0 Refills 05/17/18 Mag Hydrox/Al Hydrox/Simeth (ALUM-MAG HYDROXIDE-SIMETH LIQ) 360 Ml Oral.susp, 360 ML PO PRN Q4HRS PRN for CONSTIPATION, MISC 09/30/17 Ondansetron (ZOFRAN ODT) 4 Mg Tab.rapdis, 1 TAB SL Q4HRS for VOMITING, #15 TAB 09/30/17 Acetaminophen (TYLENOL) 325 Mg Tablet, 325 MG PO Q6HRS for PAIN, #2 TAB 09/30/17 Nicotine Polacrilex (NICORETTE) 2 Mg Gum, 2 MG BC PRN Q1HR PRN for SMOKING CESSATION, EACH 09/30/17 Polyethylene Glycol 3350 (MIRALAX) 17 Gm Powd.pack, 1 PKT PO DAILY PRN for CONSTIPATION, PKT 09/30/17 Ibuprofen (IBUPROFEN) 600 Mg Tablet, 600 MG PO PRN Q6HRS PRN for INFLAMMATION, TAB 09/24/16 Haloperidol (HALOPERIDOL) 10 Mg Tablet, 10 MG PO BID, #30 TAB 2 Refills 09/24/16 Haloperidol (HALOPERIDOL) 5 Mg Tablet, 5 MG PO PRN Q6HRS PRN for ANXIETY / AGITATION, #60 TAB Refill take 0800 and 1200 09/24/16 NORBERTO CUEVAS MD May 17, 2018 13:25
[2018-05-17 19:00] VITALS: BP 129/72
[2018-05-17] MEDS: ZOLPIDEM 5 MG TABLET. PO PRN (20:39)
[2018-05-17] MEDS: oxyCODONE IR 5 MG TABLET PO PRN (20:40)
[2018-05-17 22:47] VITALS: BP 119/74
[2018-05-18 03:00] VITALS: BP 117/74
[2018-05-18] MEDS: OLANZapine 5 MG TABLET PO SCH ×2 (09:00→20:57)
[2018-05-18] MEDS: MULTIVITAMIN with MINERAL TABLET. PO SCH (09:00)
--- NOTE | 2018-05-18 11:31 | PDOC ---
PROGRESS NOTES Chief Complaint Chief Complaint Psychosis Paranoia Mood disorder Leukemia on hospice History of Present Illness History of Present Illness Sent by [facility] because they could not deal with her and her psychosis They wanted her to [facility] but [facility] would not except as she is on hospice for leukemia hence was sent here to [facility] She ahs been refusing labs LAST WBC was 200,000 on 09/2017 She is overtly psychotic, sitter at bedside Otherwise ambulating good and eating fine Plan: Await social work/case management for DC issues Vitals Vitals Vital Signs Date Time Temp Pulse Resp B/P (MAP) Pulse Ox O2 Delivery O2 Flow Rate FiO2 05/18/18 03:00 97.8 69 18 117/74 (88) Room Air 97.8 05/17/18 22:47 96 Physical Exam General: Alert, Oriented X3, Cooperative, No acute distress, Other (psychotic in terms of conversation with her) Lungs: Other Abdomen: Normal bowel sounds, Soft, No tenderness, No hepatosplenomegaly, No masses Extremities: No clubbing, No cyanosis, No edema, Normal pulses, No tenderness/ swelling Skin: No rashes, No breakdown, No significant lesion Review of Systems Review of Systems A 14 point ROS was completed with the following noted as positive: Other systems reviewed and negative. 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 Medications Current Medications Haloperidol Lactate (Haldol Inj) 5 mg 1X ONCE IVP Last administered on at 18:00; Start 05/16/18 at 18:00; Stop 05/16/18 at 18:01; Status DC Ziprasidone (Geodon Im) 20 mg 1X ONCE IM Last administered on 05/16/18at 19:15 ; Start 05/16/18 at 19:15; Stop 05/16/18 at 19:16; Status DC Ondansetron HCl (Zofran) 4 mg PRN Q6HRS PRN IV NAUSEA/VOMITING 1ST CHOICE; Start 05/16/18 at 19:45 Prochlorperazine Edisylate (Compazine) 10 mg PRN Q6HRS PRN IV NAUSEA/VOMITING 2ND CHOICE; Start 05/16/18 at 19:45 Prochlorperazine (Compazine) 25 mg PRN Q12HR PRN [place] NAUSEA/VOMITING; Start at 19:45 Al Hydroxide/Mg Hydroxide (Mylanta Plus Xs) 30 ml PRN Q3HRS PRN PO HEARTBURN / GAS; Start 05/16/18 at 19:45 Calcium Carbonate/ Glycine (Tums) 500 mg PRN Q3HRS PRN PO UPSET STOMACH; Start 05/16/18 at 19:45 Zolpidem Tartrate (Ambien) 5 mg PRN QHS PRN PO INSOMNIA, MAY REPEAT IN 1HR Last administered on 05/17/18at 20:39; Start 05/16/18 at 19:45 Oxycodone HCl (Roxicodone) 5 mg PRN Q3HRS PRN PO MODEARTE - SEVERE PAIN Last administered on 05/17/18at 20:40; Start 05/16/18 at 19:45 Morphine Sulfate (Morphine Sulfate) 2 mg PRN Q2HR PRN IV PAIN MILD; Start 05/16 at 19:45 Ketorolac Tromethamine (Toradol 30mg Vial) 30 mg PRN Q6HRS PRN IV PAIN PREVENTION/INFLAMMATION; Start 05/16/18 at 19:45; Stop 05/21/18 at 19:44 Acetaminophen (Tylenol) 650 mg PRN Q6HRS PRN PO Headaches, Temp > 101.5F; Start 05/16/18 at 19:45 Ibuprofen (Motrin) 400 mg PRN Q6HRS PRN PO MILD PAIN; Start 05/16/18 at 19:45 Magnesium Hydroxide (Milk Of Magnesia) 2,400 mg PRN Q12HR PRN PO CONSTIPATION 2ND CHOICE; Start 05/16/18 at 19:45 Enoxaparin Sodium (Lovenox 40mg Syringe) 40 mg DAILY SQ ; Start 05/17/18 at 09: 00; Stop 05/17/18 at 11:34; Status DC Haloperidol Lactate (Haldol Inj) 5 mg PRN Q6HRS PRN IVP AGITATION; Start at 19:45; Stop 05/16/18 at 23:01; Status DC Lorazepam (Ativan) 4 mg PRN Q2HRS PRN IV ANXIETY / AGITATION; Start 05/16/18 at 19:45; Stop 05/16/18 at 23:01; Status DC Acetaminophen (Tylenol) 325 mg Q6HRS PO ; Start 05/17/18 at 00:00; Status UNV Haloperidol (Haldol) 5 mg DAILY PO ; Start 05/17/18 at 09:00; Stop 05/17/18 at 10:02; Status DC Ondansetron HCl (Zofran Odt) 4 mg PRN Q4HRS PRN PO NAUSEA/VOMITING 1ST CHOICE; Start 05/16/18 at 19:45 Non-Formulary Medication (Haloperidol ) 25 mg QHS PO ; Start 05/16/18 at 21:00; Stop 05/17/18 at 10:02; Status DC Multivitamins (Thera M Plus) 1 tab DAILY PO ; Start 05/17/18 at 09:00 Nicotine Polacrilex (Nicorette Gum) 1 each PRN Q1HR PRN BC SMOKING CESSATION; Start 05/16/18 at 20:15 Polyethylene Glycol (miraLAX PACKET) 17 gm PRN DAILY PRN PO CONSTIPATION 1ST CHOICE; Start 05/17/18 at 09:00 Acetaminophen (Tylenol) 650 mg PRN Q4HRS PRN PO FEVER; Start 05/16/18 at 22:45 ; Stop 05/17/18 at 22:44; Status UNV Haloperidol Lactate (Haldol Inj) 5 mg PRN Q6HRS PRN IM AGITATION; Start at 23:15; Stop 05/17/18 at 20:46; Status DC Lorazepam (Ativan) 4 mg PRN Q2HRS PRN IM ANXIETY / AGITATION,1ST CHOICE Last administered on 05/17/18at 19:35; Start 05/16/18 at 23:15 Haloperidol (Haldol) 5 mg BID PO ; Start 05/17/18 at 21:00; Stop 05/17/18 at 21: 00; Status DC Olanzapine (ZyPREXA IM) 10 mg PRN Q8HRS PRN IM ANXIETY / AGITATION,2ND CHOICE; Start 05/17/18 at 20:45 Olanzapine (ZyPREXA) 5 mg BID PO ; Start 05/18/18 at 09:00 Active Scripts Active Reported [Morphine Sulfate ] 0.5 Ml PO PRN Q4HRS PRN Lorazepam Intensol (Lorazepam) 2 Mg/1 Ml Oral.conc 2 Mg IM PRN Q4HRS PRN Hydroxyzine Hcl 25 Mg Tablet 1 Tab PO PRN Q4HRS PRN Hydrocodone-Apap 5-325 (Hydrocodone Bit/Acetaminophen) 1 Each Tablet 1 Tab PO PRN Q4HRS PRN Alum-Mag Hydroxide-Simeth Liq (Mag Hydrox/Al Hydrox/Simeth) 360 Ml Oral.susp 360 Ml PO PRN Q4HRS PRN Zofran Odt (Ondansetron) 4 Mg Tab.rapdis 1 Tab SL Q4HRS Tylenol (Acetaminophen) 325 Mg Tablet 325 Mg PO Q6HRS Nicorette (Nicotine Polacrilex) 2 Mg Gum 2 Mg BC PRN Q1HR PRN Miralax (Polyethylene Glycol 3350) 17 Gm Powd.pack 1 Pkt PO DAILY PRN Ibuprofen 600 Mg Tablet 600 Mg PO PRN Q6HRS PRN Haloperidol 10 Mg Tablet 10 Mg PO BID Haloperidol 5 Mg Tablet 5 Mg PO PRN Q6HRS PRN take 0800 and 1200 Vitals/I & O Vital Sign - Last 24 Hours 05/17/18 05/17/18 05/17/18 05/17/18 19:00 20:00 20:40 22:47 Temp 97.0 97.8 97.0 97.8 Pulse 88 71 Resp 18 18 17 B/P (MAP) 129/72 (91) 119/74 (89) Pulse Ox 99 96 O2 Delivery Room Air Room Air Room Air Room Air 05/18/18 03:00 Temp 97.8 97.8 Pulse 69 Resp 18 B/P (MAP) 117/74 (88) O2 Delivery Room Air Intake and Output 05/17/18 05/17/18 05/18/18 15:00 23:00 07:00 Intake Total 480 ml Output Total 0 ml Balance 480 ml 0 ml NORBERTO CUEVAS MD May 18, 2018 11:31
[2018-05-18] MEDS: OLANZapine IM 10 MG VIAL. IM PRN ×2 (12:27→22:01)
[2018-05-18] MEDS ORDERED: ZIPRASIDONE IM 20 MG VIAL. IM ONE (14:00)
[2018-05-18] MEDS: oxyCODONE IR 5 MG TABLET PO PRN (20:57)
[2018-05-18] MEDS: ZOLPIDEM 5 MG TABLET. PO PRN (20:57)
[2018-05-18 23:00] VITALS: BP 110/72
[2018-05-19 03:00] VITALS: BP 137/90
[2018-05-19] MEDS: OLANZapine 5 MG TABLET PO SCH ×2 (08:11→20:45)
[2018-05-19] MEDS: MULTIVITAMIN with MINERAL TABLET. PO SCH (08:23)
--- NOTE | 2018-05-19 12:39 | PDOC ---
PROGRESS NOTES Chief Complaint Chief Complaint Psychosis Paranoia Mood disorder Leukemia on hospice plan: on olanzapine 5mg bid home meds haldol and ativan cont ativan prn haldol as needed but nurse said haldol makes pt worse US legs to rule out dvt HAS to fu with sw for dc plan, pt is on hospice for leukemia, seems not taking her psych meds for weeks at the facility, but [facility] just adjusted her meds as per SW pt needs to transfer back to psych facility and fu with psych as in or outpt History of Present Illness History of Present Illness Sent by [facility] because they could not deal with her and her psychosis They wanted her to [facility] but [facility] would not except as she is on hospice for leukemia hence was sent here to [place] She ahs been refusing labs LAST WBC was 200,000 on 09/2017 She is overtly psychotic, sitter at bedside Otherwise ambulating good and eating fine pt not communicatable, says yes when calling her name otherwise just mumbling words and hard to understand , has 1 to 1 sitter Vitals Vitals Vital Signs Date Time Temp Pulse Resp B/P (MAP) Pulse Ox O2 Delivery O2 Flow Rate FiO2 05/19/18 08:00 Room Air 05/19/18 03:00 96.9 79 18 137/90 (106) 96.9 05/18/18 23:00 99 Physical Exam Physical Exam bl leg swelling General: Alert, Oriented X3, Cooperative, No acute distress, Other (psychotic in terms of conversation with her) Heart: Regular rate, Normal S1, Normal S2 Lungs: Clear, Other Abdomen: Normal bowel sounds, Soft, No tenderness, No hepatosplenomegaly, No masses Extremities: No clubbing, No cyanosis, No edema, Normal pulses, No tenderness/ swelling Skin: No rashes, No breakdown, No significant lesion Assessment and Plan Assessmemt and Plan Problems Medical Problems: (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 Medications Current Medications Haloperidol Lactate (Haldol Inj) 5 mg 1X ONCE IVP Last administered on at 18:00; Start 05/16/18 at 18:00; Stop 05/16/18 at 18:01; Status DC Ziprasidone (Geodon Im) 20 mg 1X ONCE IM Last administered on 05/16/18at 19:15 ; Start 05/16/18 at 19:15; Stop 05/16/18 at 19:16; Status DC Ondansetron HCl (Zofran) 4 mg PRN Q6HRS PRN IV NAUSEA/VOMITING 1ST CHOICE; Start 05/16/18 at 19:45 Prochlorperazine Edisylate (Compazine) 10 mg PRN Q6HRS PRN IV NAUSEA/VOMITING 2ND CHOICE; Start 05/16/18 at 19:45 Prochlorperazine (Compazine) 25 mg PRN Q12HR PRN [place] NAUSEA/VOMITING; Start at 19:45 Al Hydroxide/Mg Hydroxide (Mylanta Plus Xs) 30 ml PRN Q3HRS PRN PO HEARTBURN / GAS; Start 05/16/18 at 19:45 Calcium Carbonate/ Glycine (Tums) 500 mg PRN Q3HRS PRN PO UPSET STOMACH; Start 05/16/18 at 19:45 Zolpidem Tartrate (Ambien) 5 mg PRN QHS PRN PO INSOMNIA, MAY REPEAT IN 1HR Last administered on 05/18/18at 20:57; Start 05/16/18 at 19:45 Oxycodone HCl (Roxicodone) 5 mg PRN Q3HRS PRN PO MODEARTE - SEVERE PAIN Last administered on 05/18/18at 20:57; Start 05/16/18 at 19:45 Morphine Sulfate (Morphine Sulfate) 2 mg PRN Q2HR PRN IV PAIN MILD; Start 05/16 at 19:45 Ketorolac Tromethamine (Toradol 30mg Vial) 30 mg PRN Q6HRS PRN IV PAIN PREVENTION/INFLAMMATION; Start 05/16/18 at 19:45; Stop 05/21/18 at 19:44 Acetaminophen (Tylenol) 650 mg PRN Q6HRS PRN PO Headaches, Temp > 101.5F; Start 05/16/18 at 19:45 Ibuprofen (Motrin) 400 mg PRN Q6HRS PRN PO MILD PAIN; Start 05/16/18 at 19:45 Magnesium Hydroxide (Milk Of Magnesia) 2,400 mg PRN Q12HR PRN PO CONSTIPATION 2ND CHOICE; Start 05/16/18 at 19:45 Enoxaparin Sodium (Lovenox 40mg Syringe) 40 mg DAILY SQ ; Start 05/17/18 at 09: 00; Stop 05/17/18 at 11:34; Status DC Haloperidol Lactate (Haldol Inj) 5 mg PRN Q6HRS PRN IVP AGITATION; Start at 19:45; Stop 05/16/18 at 23:01; Status DC Lorazepam (Ativan) 4 mg PRN Q2HRS PRN IV ANXIETY / AGITATION; Start 05/16/18 at 19:45; Stop 05/16/18 at 23:01; Status DC Acetaminophen (Tylenol) 325 mg Q6HRS PO ; Start 05/17/18 at 00:00; Status UNV Haloperidol (Haldol) 5 mg DAILY PO ; Start 05/17/18 at 09:00; Stop 05/17/18 at 10:02; Status DC Ondansetron HCl (Zofran Odt) 4 mg PRN Q4HRS PRN PO NAUSEA/VOMITING 1ST CHOICE; Start 05/16/18 at 19:45 Non-Formulary Medication (Haloperidol ) 25 mg QHS PO ; Start 05/16/18 at 21:00; Stop 05/17/18 at 10:02; Status DC Multivitamins (Thera M Plus) 1 tab DAILY PO ; Start 05/17/18 at 09:00 Nicotine Polacrilex (Nicorette Gum) 1 each PRN Q1HR PRN BC SMOKING CESSATION; Start 05/16/18 at 20:15 Polyethylene Glycol (miraLAX PACKET) 17 gm PRN DAILY PRN PO CONSTIPATION 1ST CHOICE; Start 05/17/18 at 09:00 Acetaminophen (Tylenol) 650 mg PRN Q4HRS PRN PO FEVER; Start 05/16/18 at 22:45 ; Stop 05/17/18 at 22:44; Status UNV Haloperidol Lactate (Haldol Inj) 5 mg PRN Q6HRS PRN IM AGITATION; Start at 23:15; Stop 05/17/18 at 20:46; Status DC Lorazepam (Ativan) 4 mg PRN Q2HRS PRN IM ANXIETY / AGITATION,1ST CHOICE Last administered on 05/19/18at 08:10; Start 05/16/18 at 23:15 Haloperidol (Haldol) 5 mg BID PO ; Start 05/17/18 at 21:00; Stop 05/17/18 at 21: 00; Status DC Olanzapine (ZyPREXA IM) 10 mg PRN Q8HRS PRN IM ANXIETY / AGITATION,2ND CHOICE Last administered on 05/18/18at 22:01; Start 05/17/18 at 20:45 Olanzapine (ZyPREXA) 5 mg BID PO Last administered on 05/19/18at 08:11; Start at 09:00 Ziprasidone (Geodon Im) 20 mg 1X ONCE IM Last administered on 05/18/18at 14:03 ; Start 05/18/18 at 14:00; Stop 05/18/18 at 14:01; Status DC Active Scripts Active Reported [Morphine Sulfate ] 0.5 Ml PO PRN Q4HRS PRN Lorazepam Intensol (Lorazepam) 2 Mg/1 Ml Oral.conc 2 Mg IM PRN Q4HRS PRN Hydroxyzine Hcl 25 Mg Tablet 1 Tab PO PRN Q4HRS PRN Hydrocodone-Apap 5-325 (Hydrocodone Bit/Acetaminophen) 1 Each Tablet 1 Tab PO PRN Q4HRS PRN Alum-Mag Hydroxide-Simeth Liq (Mag Hydrox/Al Hydrox/Simeth) 360 Ml Oral.susp 360 Ml PO PRN Q4HRS PRN Zofran Odt (Ondansetron) 4 Mg Tab.rapdis 1 Tab SL Q4HRS Tylenol (Acetaminophen) 325 Mg Tablet 325 Mg PO Q6HRS Nicorette (Nicotine Polacrilex) 2 Mg Gum 2 Mg BC PRN Q1HR PRN Miralax (Polyethylene Glycol 3350) 17 Gm Powd.pack 1 Pkt PO DAILY PRN Ibuprofen 600 Mg Tablet 600 Mg PO PRN Q6HRS PRN Haloperidol 10 Mg Tablet 10 Mg PO BID Haloperidol 5 Mg Tablet 5 Mg PO PRN Q6HRS PRN take 0800 and 1200 Vitals/I & O Vital Sign - Last 24 Hours 05/18/18 05/18/18 05/18/18 05/18/18 20:00 20:57 21:57 23:00 Temp 98.0 98.0 Pulse 85 Resp 18 18 18 B/P (MAP) 110/72 (85) Pulse Ox 96 96 99 O2 Delivery Room Air Room Air Room Air Room Air 05/19/18 05/19/18 03:00 08:00 Temp 96.9 96.9 Pulse 79 Resp 18 B/P (MAP) 137/90 (106) O2 Delivery Room Air Room Air Intake and Output 05/18/18 05/18/18 05/19/18 15:00 23:00 07:00 Intake Total 100 ml 90 ml Balance 100 ml 90 ml PARIS LAWSON MD May 19, 2018 12:38
--- NOTE | 2018-05-19 14:17 | RAD ---
EXAM: Bilateral lower extremity venous Doppler sonogram. HISTORY: Pain and swelling. TECHNIQUE: Taylor scale and color Doppler sonographic evaluation of the bilateral lower extremity veins with spectral waveform analysis was performed. FINDINGS: There is normal color flow, normal compressibility and there are normal spectral waveforms in the common femoral, superficial femoral, popliteal, posterior tibial and greater saphenous veins. IMPRESSION: No Doppler evidence of lower extremity deep venous thrombosis. Electronically signed by: Ciera Chu MD (05/19/2018 2:14 PM) [place] [id number]
[2018-05-19 19:00] VITALS: BP 140/91
[2018-05-19] MEDS: OLANZapine IM 10 MG VIAL. IM PRN (22:20)
[2018-05-19 23:00] VITALS: BP 139/77
[2018-05-20 03:00] VITALS: BP 137/69
--- NOTE | 2018-05-20 10:39 | PDOC ---
PROGRESS NOTES Chief Complaint Chief Complaint 62-year-old female came from psych [facility] in [facility] , is overtly psychotic, was transferred here to [facility] because [facility] "[facility] with her". wanted her transferred to [facility] but [facility] would not accept because she is on hospice for leukemia. She is refusing basic labs Psychosis Paranoia Mood disorder Leukemia on hospice plan: on olanzapine 5mg bid home meds haldol and ativan cont ativan prn haldol as needed but nurse said haldol makes pt worse US legs to rule out dvt HAS to fu with sw for dc plan, pt is on hospice for leukemia, seems not taking her psych meds for weeks at the facility, but [facility] just adjusted her meds as per pt needs to transfer back to psych facility and fu with psych as in or outpt History of Present Illness History of Present Illness Sent by [facility] [place] because they could not deal with her and her psychosis They wanted her to [facility] but [facility] would not except as she is on hospice for leukemia hence was sent here to [place] She ahs been refusing labs LAST WBC was 200,000 on 09/2017 She is overtly psychotic, sitter at bedside Otherwise ambulating good and eating fine pt not communicatable, says yes when calling her name otherwise just mumbling words and hard to understand , has 1 to 1 sitter Vitals Vitals Vital Signs Date Time Temp Pulse Resp B/P (MAP) Pulse Ox O2 Delivery O2 Flow Rate FiO2 05/20/18 07:00 Room Air 05/20/18 03:00 97.9 78 20 137/69 (91) 99 97.9 Physical Exam Physical Exam bl leg swelling General: Alert, Oriented X3, Cooperative, No acute distress, Other (psychotic in terms of conversation with her) Heart: Regular rate, Normal S1, Normal S2 Lungs: Clear, Other Abdomen: Normal bowel sounds, Soft, No tenderness, No hepatosplenomegaly, No masses Extremities: No clubbing, No cyanosis, No edema, Normal pulses, No tenderness/ swelling Skin: No rashes, No breakdown, No significant lesion Labs LABS EXAM: Bilateral lower extremity venous Doppler sonogram. HISTORY: Pain and swelling. TECHNIQUE: Taylor scale and color Doppler sonographic evaluation of the bilateral lower extremity veins with spectral waveform analysis was performed. FINDINGS: There is normal color flow, normal compressibility and there are normal spectral waveforms in the common femoral, superficial femoral, popliteal, posterior tibial and greater saphenous veins. IMPRESSION: No Doppler evidence of lower extremity deep venous thrombosis. 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 Medications Current Medications Haloperidol Lactate (Haldol Inj) 5 mg 1X ONCE IVP Last administered on at 18:00; Start 05/16/18 at 18:00; Stop 05/16/18 at 18:01; Status DC Ziprasidone (Geodon Im) 20 mg 1X ONCE IM Last administered on 05/16/18at 19:15 ; Start 05/16/18 at 19:15; Stop 05/16/18 at 19:16; Status DC Ondansetron HCl (Zofran) 4 mg PRN Q6HRS PRN IV NAUSEA/VOMITING 1ST CHOICE; Start 05/16/18 at 19:45 Prochlorperazine Edisylate (Compazine) 10 mg PRN Q6HRS PRN IV NAUSEA/VOMITING 2ND CHOICE; Start 05/16/18 at 19:45 Prochlorperazine (Compazine) 25 mg PRN Q12HR PRN [place] NAUSEA/VOMITING; Start at 19:45 Al Hydroxide/Mg Hydroxide (Mylanta Plus Xs) 30 ml PRN Q3HRS PRN PO HEARTBURN / GAS; Start 05/16/18 at 19:45 Calcium Carbonate/ Glycine (Tums) 500 mg PRN Q3HRS PRN PO UPSET STOMACH; Start 05/16/18 at 19:45 Zolpidem Tartrate (Ambien) 5 mg PRN QHS PRN PO INSOMNIA, MAY REPEAT IN 1HR Last administered on 05/18/18at 20:57; Start 05/16/18 at 19:45 Oxycodone HCl (Roxicodone) 5 mg PRN Q3HRS PRN PO MODEARTE - SEVERE PAIN Last administered on 05/18/18at 20:57; Start 05/16/18 at 19:45 Morphine Sulfate (Morphine Sulfate) 2 mg PRN Q2HR PRN IV PAIN MILD; Start 05/16 at 19:45 Ketorolac Tromethamine (Toradol 30mg Vial) 30 mg PRN Q6HRS PRN IV PAIN PREVENTION/INFLAMMATION; Start 05/16/18 at 19:45; Stop 05/21/18 at 19:44 Acetaminophen (Tylenol) 650 mg PRN Q6HRS PRN PO Headaches, Temp > 101.5F; Start 05/16/18 at 19:45 Ibuprofen (Motrin) 400 mg PRN Q6HRS PRN PO MILD PAIN; Start 05/16/18 at 19:45 Magnesium Hydroxide (Milk Of Magnesia) 2,400 mg PRN Q12HR PRN PO CONSTIPATION 2ND CHOICE; Start 05/16/18 at 19:45 Enoxaparin Sodium (Lovenox 40mg Syringe) 40 mg DAILY SQ ; Start 05/17/18 at 09: 00; Stop 05/17/18 at 11:34; Status DC Haloperidol Lactate (Haldol Inj) 5 mg PRN Q6HRS PRN IVP AGITATION; Start at 19:45; Stop 05/16/18 at 23:01; Status DC Lorazepam (Ativan) 4 mg PRN Q2HRS PRN IV ANXIETY / AGITATION; Start 05/16/18 at 19:45; Stop 05/16/18 at 23:01; Status DC Acetaminophen (Tylenol) 325 mg Q6HRS PO ; Start 05/17/18 at 00:00; Status UNV Haloperidol (Haldol) 5 mg DAILY PO ; Start 05/17/18 at 09:00; Stop 05/17/18 at 10:02; Status DC Ondansetron HCl (Zofran Odt) 4 mg PRN Q4HRS PRN PO NAUSEA/VOMITING 1ST CHOICE; Start 05/16/18 at 19:45 Non-Formulary Medication (Haloperidol ) 25 mg QHS PO ; Start 05/16/18 at 21:00; Stop 05/17/18 at 10:02; Status DC Multivitamins (Thera M Plus) 1 tab DAILY PO ; Start 05/17/18 at 09:00 Nicotine Polacrilex (Nicorette Gum) 1 each PRN Q1HR PRN BC SMOKING CESSATION; Start 05/16/18 at 20:15 Polyethylene Glycol (miraLAX PACKET) 17 gm PRN DAILY PRN PO CONSTIPATION 1ST CHOICE; Start 05/17/18 at 09:00 Acetaminophen (Tylenol) 650 mg PRN Q4HRS PRN PO FEVER; Start 05/16/18 at 22:45 ; Stop 05/17/18 at 22:44; Status UNV Haloperidol Lactate (Haldol Inj) 5 mg PRN Q6HRS PRN IM AGITATION; Start at 23:15; Stop 05/17/18 at 20:46; Status DC Lorazepam (Ativan) 4 mg PRN Q2HRS PRN IM ANXIETY / AGITATION,1ST CHOICE Last administered on 05/20/18at 04:18; Start 05/16/18 at 23:15 Haloperidol (Haldol) 5 mg BID PO ; Start 05/17/18 at 21:00; Stop 05/17/18 at 21: 00; Status DC Olanzapine (ZyPREXA IM) 10 mg PRN Q8HRS PRN IM ANXIETY / AGITATION,2ND CHOICE Last administered on 05/19/18at 22:20; Start 05/17/18 at 20:45 Olanzapine (ZyPREXA) 5 mg BID PO Last administered on 05/19/18at 08:11; Start at 09:00 Ziprasidone (Geodon Im) 20 mg 1X ONCE IM Last administered on 05/18/18at 14:03 ; Start 05/18/18 at 14:00; Stop 05/18/18 at 14:01; Status DC Active Scripts Active Reported [Morphine Sulfate ] 0.5 Ml PO PRN Q4HRS PRN Lorazepam Intensol (Lorazepam) 2 Mg/1 Ml Oral.conc 2 Mg IM PRN Q4HRS PRN Hydroxyzine Hcl 25 Mg Tablet 1 Tab PO PRN Q4HRS PRN Hydrocodone-Apap 5-325 (Hydrocodone Bit/Acetaminophen) 1 Each Tablet 1 Tab PO PRN Q4HRS PRN Alum-Mag Hydroxide-Simeth Liq (Mag Hydrox/Al Hydrox/Simeth) 360 Ml Oral.susp 360 Ml PO PRN Q4HRS PRN Zofran Odt (Ondansetron) 4 Mg Tab.rapdis 1 Tab SL Q4HRS Tylenol (Acetaminophen) 325 Mg Tablet 325 Mg PO Q6HRS Nicorette (Nicotine Polacrilex) 2 Mg Gum 2 Mg BC PRN Q1HR PRN Miralax (Polyethylene Glycol 3350) 17 Gm Powd.pack 1 Pkt PO DAILY PRN Ibuprofen 600 Mg Tablet 600 Mg PO PRN Q6HRS PRN Haloperidol 10 Mg Tablet 10 Mg PO BID Haloperidol 5 Mg Tablet 5 Mg PO PRN Q6HRS PRN take 0800 and 1200 Vitals/I & O Vital Sign - Last 24 Hours 05/19/18 05/19/18 05/19/18 05/20/18 19:00 20:00 23:00 03:00 Temp 98.1 97.9 98.1 97.9 Pulse 96 95 78 Resp 20 22 20 B/P (MAP) 140/91 (107) 139/77 (97) 137/69 (91) Pulse Ox 99 O2 Delivery Room Air Room Air Room Air Room Air 05/20/18 07:00 O2 Delivery Room Air Intake and Output 05/19/18 05/19/18 05/20/18 15:00 23:00 07:00 Intake Total 240 ml 360 ml Balance 240 ml 360 ml BASILIO ROQUE MD May 20, 2018 10:39
[2018-05-20] MEDS: MULTIVITAMIN with MINERAL TABLET. PO SCH (10:59)
[2018-05-20] MEDS: OLANZapine 5 MG TABLET PO SCH ×2 (11:00→21:00)
[2018-05-20 19:14] VITALS: BP 138/82
[2018-05-20] MEDS: OLANZapine IM 10 MG VIAL. IM PRN (22:37)
[2018-05-21 02:43] VITALS: BP 139/79
[2018-05-21] MEDS: OLANZapine 5 MG TABLET PO SCH (09:00)
[2018-05-21] MEDS: MULTIVITAMIN with MINERAL TABLET. PO SCH (09:00)
--- NOTE | 2018-05-21 11:01 | PDOC ---
PROGRESS NOTES Chief Complaint Chief Complaint 62-year-old female came from psych br[facility] in [facility] , is overtly psychotic, was transferred here to [facility] because apparently [facility] could not "deal with her". wanted her transferred to [facility] but [facility] would not accept because she is on hospice for leukemia. LABS DRAWN, CONFIRM NEED FOR HOSPICE Psychosis Paranoia Mood disorder Leukemia on hospice plan: on olanzapine 5mg bid home meds haldol and ativan cont ativan prn haldol as needed but nurse said haldol makes pt worse US legs to rule out dvt HAS to fu with sw for dc plan, pt is on hospice for leukemia, seems not taking her psych meds for weeks at the facility, but [facility] just adjusted her meds as per pt needs to transfer back to psych facility and fu with psych as in or outpt History of Present Illness History of Present Illness Sent by [facility] [place] because they could not deal with her and her psychosis They wanted her to [facility] but [facility] would not except as she is on hospice for leukemia hence was sent here to [facility] She ahs been refusing labs LAST WBC was 200,000 on 09/2017 She is overtly psychotic, sitter at bedside Otherwise ambulating good and eating fine pt not communicatable, says yes when calling her name otherwise just mumbling words and hard to understand , has 1 to 1 sitter Vitals Vitals Vital Signs Date Time Temp Pulse Resp B/P (MAP) Pulse Ox O2 Delivery O2 Flow Rate FiO2 05/21/18 02:43 73 32 139/79 (99) Room Air Physical Exam Physical Exam bl leg swelling General: Alert, Oriented X3, No acute distress, Other (psychotic in terms of conversation REFUSING MOST OF MY EXAM) Heart: Regular rate, Normal S1, Normal S2 Lungs: Clear, Other Abdomen: Normal bowel sounds, Soft, No tenderness, No hepatosplenomegaly, No masses Extremities: No clubbing, No cyanosis, No edema, Normal pulses, No tenderness/ swelling Skin: No rashes, No breakdown, No significant lesion Assessment and Plan Assessmemt and Plan Problems Medical Problems: (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 Medications Current Medications Haloperidol Lactate (Haldol Inj) 5 mg 1X ONCE IVP Last administered on at 18:00; Start 05/16/18 at 18:00; Stop 05/16/18 at 18:01; Status DC Ziprasidone (Geodon Im) 20 mg 1X ONCE IM Last administered on 05/16/18at 19:15 ; Start 05/16/18 at 19:15; Stop 05/16/18 at 19:16; Status DC Ondansetron HCl (Zofran) 4 mg PRN Q6HRS PRN IV NAUSEA/VOMITING 1ST CHOICE; Start 05/16/18 at 19:45 Prochlorperazine Edisylate (Compazine) 10 mg PRN Q6HRS PRN IV NAUSEA/VOMITING 2ND CHOICE; Start 05/16/18 at 19:45 Prochlorperazine (Compazine) 25 mg PRN Q12HR PRN [place] NAUSEA/VOMITING; Start at 19:45 Al Hydroxide/Mg Hydroxide (Mylanta Plus Xs) 30 ml PRN Q3HRS PRN PO HEARTBURN / GAS; Start 05/16/18 at 19:45 Calcium Carbonate/ Glycine (Tums) 500 mg PRN Q3HRS PRN PO UPSET STOMACH; Start 05/16/18 at 19:45 Zolpidem Tartrate (Ambien) 5 mg PRN QHS PRN PO INSOMNIA, MAY REPEAT IN 1HR Last administered on 05/18/18at 20:57; Start 05/16/18 at 19:45 Oxycodone HCl (Roxicodone) 5 mg PRN Q3HRS PRN PO MODEARTE - SEVERE PAIN Last administered on 05/18/18at 20:57; Start 05/16/18 at 19:45 Morphine Sulfate (Morphine Sulfate) 2 mg PRN Q2HR PRN IV PAIN MILD; Start 05/16 at 19:45 Ketorolac Tromethamine (Toradol 30mg Vial) 30 mg PRN Q6HRS PRN IV PAIN PREVENTION/INFLAMMATION; Start 05/16/18 at 19:45; Stop 05/21/18 at 19:44 Acetaminophen (Tylenol) 650 mg PRN Q6HRS PRN PO Headaches, Temp > 101.5F; Start 05/16/18 at 19:45 Ibuprofen (Motrin) 400 mg PRN Q6HRS PRN PO MILD PAIN; Start 05/16/18 at 19:45 Magnesium Hydroxide (Milk Of Magnesia) 2,400 mg PRN Q12HR PRN PO CONSTIPATION 2ND CHOICE; Start 05/16/18 at 19:45 Enoxaparin Sodium (Lovenox 40mg Syringe) 40 mg DAILY SQ ; Start 05/17/18 at 09: 00; Stop 05/17/18 at 11:34; Status DC Haloperidol Lactate (Haldol Inj) 5 mg PRN Q6HRS PRN IVP AGITATION; Start at 19:45; Stop 05/16/18 at 23:01; Status DC Lorazepam (Ativan) 4 mg PRN Q2HRS PRN IV ANXIETY / AGITATION; Start 05/16/18 at 19:45; Stop 05/16/18 at 23:01; Status DC Acetaminophen (Tylenol) 325 mg Q6HRS PO ; Start 05/17/18 at 00:00; Status UNV Haloperidol (Haldol) 5 mg DAILY PO ; Start 05/17/18 at 09:00; Stop 05/17/18 at 10:02; Status DC Ondansetron HCl (Zofran Odt) 4 mg PRN Q4HRS PRN PO NAUSEA/VOMITING 1ST CHOICE; Start 05/16/18 at 19:45 Non-Formulary Medication (Haloperidol ) 25 mg QHS PO ; Start 05/16/18 at 21:00; Stop 05/17/18 at 10:02; Status DC Multivitamins (Thera M Plus) 1 tab DAILY PO Last administered on 05/20/18at 10: 59; Start 05/17/18 at 09:00 Nicotine Polacrilex (Nicorette Gum) 1 each PRN Q1HR PRN BC SMOKING CESSATION; Start 05/16/18 at 20:15 Polyethylene Glycol (miraLAX PACKET) 17 gm PRN DAILY PRN PO CONSTIPATION 1ST CHOICE; Start 05/17/18 at 09:00 Acetaminophen (Tylenol) 650 mg PRN Q4HRS PRN PO FEVER; Start 05/16/18 at 22:45 ; Stop 05/17/18 at 22:44; Status UNV Haloperidol Lactate (Haldol Inj) 5 mg PRN Q6HRS PRN IM AGITATION; Start at 23:15; Stop 05/17/18 at 20:46; Status DC Lorazepam (Ativan) 4 mg PRN Q2HRS PRN IM ANXIETY / AGITATION,1ST CHOICE Last administered on 05/20/18at 23:30; Start 05/16/18 at 23:15 Haloperidol (Haldol) 5 mg BID PO ; Start 05/17/18 at 21:00; Stop 05/17/18 at 21: 00; Status DC Olanzapine (ZyPREXA IM) 10 mg PRN Q8HRS PRN IM ANXIETY / AGITATION,2ND CHOICE Last administered on 05/20/18at 22:37; Start 05/17/18 at 20:45 Olanzapine (ZyPREXA) 5 mg BID PO Last administered on 05/20/18at 11:00; Start at 09:00 Ziprasidone (Geodon Im) 20 mg 1X ONCE IM Last administered on 05/18/18at 14:03 ; Start 05/18/18 at 14:00; Stop 05/18/18 at 14:01; Status DC Active Scripts Active Reported [Morphine Sulfate ] 0.5 Ml PO PRN Q4HRS PRN Lorazepam Intensol (Lorazepam) 2 Mg/1 Ml Oral.conc 2 Mg IM PRN Q4HRS PRN Hydroxyzine Hcl 25 Mg Tablet 1 Tab PO PRN Q4HRS PRN Hydrocodone-Apap 5-325 (Hydrocodone Bit/Acetaminophen) 1 Each Tablet 1 Tab PO PRN Q4HRS PRN Alum-Mag Hydroxide-Simeth Liq (Mag Hydrox/Al Hydrox/Simeth) 360 Ml Oral.susp 360 Ml PO PRN Q4HRS PRN Zofran Odt (Ondansetron) 4 Mg Tab.rapdis 1 Tab SL Q4HRS Tylenol (Acetaminophen) 325 Mg Tablet 325 Mg PO Q6HRS Nicorette (Nicotine Polacrilex) 2 Mg Gum 2 Mg BC PRN Q1HR PRN Miralax (Polyethylene Glycol 3350) 17 Gm Powd.pack 1 Pkt PO DAILY PRN Ibuprofen 600 Mg Tablet 600 Mg PO PRN Q6HRS PRN Haloperidol 10 Mg Tablet 10 Mg PO BID Haloperidol 5 Mg Tablet 5 Mg PO PRN Q6HRS PRN take 0800 and 1200 Vitals/I & O Vital Sign - Last 24 Hours 05/20/18 05/20/18 05/21/18 19:14 20:01 02:43 Pulse 90 73 Resp 30 32 B/P (MAP) 138/82 (100) 139/79 (99) O2 Delivery Room Air Room Air Room Air Intake and Output 05/20/18 05/20/18 05/21/18 15:00 23:00 07:00 Intake Total 580 ml 370 ml Balance 580 ml 370 ml BASILIO ROQUE MD May 21, 2018 11:01
[2018-05-21 13:04] LABS: BILIRUBIN,URINE SMALL (NEG); CLARITY,URINE CLOUDY; COLOR,URINE AMBER; NITRITE,URINE POSITIVE (NEG); PH,URINE 5.5; PROTEIN,URINE 30 mg/dL (NEG-TRACE)
[2018-05-21 13:11] LABS: BACTERIA,URINE MANY /HPF (0-FEW); SQUAMOUS EPITHELIAL CELL,UR FEW /LPF; WBC,URINE 20-40 /HPF (0-4)
[2018-05-21 13:12] LABS: RBC,URINE OCC /HPF (0-2)
[2018-05-21 13:31] LABS: CALCIUM 9.4 mg/dL (8.5-10.1); CREATININE 0.9 mg/dL (0.6-1.0); GFR 63.2; POTASSIUM 4.6 mmol/L (3.5-5.1)
[2018-05-21 13:32] LABS: BASO # 0.6 x10^3/uL (0.0-0.2); BASO % 0 % (0-3); EOS # 0.6 x10^3/uL (0.0-0.7); EOS % 0 % (0-3); HEMATOCRIT 38.8 % (36.0-47.0); HEMOGLOBIN 12.7 g/dL (12.0-15.5); LYMPH # 261.7 x10^3/uL (1.0-4.8); LYMPH % 92 % (24-48); MEAN CORPUSCULAR HEMOGLOBIN 30 pg (25-35); MEAN CORPUSCULAR HGB CONC 33 g/dL (31-37); MEAN CORPUSCULAR VOLUME 91 fL (79-100); MONO # 7.1 x10^3/uL (0.0-1.1); MONO % 3 % (0-9); NEUT % 5 % (31-73); PLATELET COUNT 178 x10^3/uL (140-400); RED BLOOD COUNT 4.26 x10^6/uL (3.50-5.40); RED CELL DISTRIBUTION WIDTH 15.4 % (11.5-14.5)
--- NOTE | 2018-05-21 13:53 | PDOC3 ---
Discharge Summary Date of Admission: May 16, 2018 Date of Discharge: May 21, 2018 Follow-Up: 3-5 days Admitting Diagnosis comment: DISCHARGE DIAGNOSIS Chief Complaint 62-year-old female came from psych [facility] in [facility] , is overtly psychotic, was transferred here to [facility] because apparently [facility] could not "deal with her". wanted her transferred to [facility] but [facility] would not accept because she is on hospice for leukemia. LABS DRAWN, CONFIRM NEED FOR HOSPICE Psychosis Paranoia Mood disorder Leukemia on hospice plan: on olanzapine 5mg bid home meds haldol and ativan cont ativan prn haldol as needed but nurse said haldol makes pt worse US legs to rule out dvt , pt is on hospice for leukemia, seems not taking her psych meds for weeks at the facility, but [facility] just adjusted her meds as per SW transfer back to psych facility and fu with psych History of Present Illness History of Present Illness Sent by [facility] [place] because they could not deal with her and her psychosis They wanted her to [facility] but [facility] would not except as she is on hospice for leukemia hence was sent here to [facility] She ahs been refusing labs LAST WBC was 200,000 on 09/2017 She is overtly psychotic, sitter at bedside Otherwise ambulating good and eating FAIR pt not communicatable, says yes when calling her name otherwise just mumbling words and hard to understand , has 1 to 1 sitter Vitals Vitals Vital Signs Date Time Temp Pulse Resp B/P (MAP) Pulse Ox O2 Delivery O2 Flow Rate FiO2 05/21/18 02:43 73 32 139/79 (99) Room Air Physical Exam Physical Exam bl leg swelling General: Alert, Oriented X3, No acute distress, Other (psychotic in terms of conversation REFUSING MOST OF MY EXAM) Heart: Regular rate, Normal S1, Normal S2 Lungs: Clear, Other Abdomen: Normal bowel sounds, Soft, No tenderness, No hepatosplenomegaly, No masses Extremities: No clubbing, No cyanosis, No edema, Normal pulses, No tenderness/ swelling Skin: No rashes, No breakdown, No significant lesion FINAL DIAGNOSIS Problems Medical Problems: (1) 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 Noe is a 62 old [sex] who presented with [ PSYCHOSIS FLAIR] CONDITION AT DISCHARGE: Comment (GUARDED) Discharge Medications Current Medications Haloperidol Lactate (Haldol Inj) 5 mg 1X ONCE IVP Last administered on at 18:00; Start 05/16/18 at 18:00; Stop 05/16/18 at 18:01; Status DC Ziprasidone (Geodon Im) 20 mg 1X ONCE IM Last administered on 05/16/18at 19:15 ; Start 05/16/18 at 19:15; Stop 05/16/18 at 19:16; Status DC Ondansetron HCl (Zofran) 4 mg PRN Q6HRS PRN IV NAUSEA/VOMITING 1ST CHOICE; Start 05/16/18 at 19:45 Prochlorperazine Edisylate (Compazine) 10 mg PRN Q6HRS PRN IV NAUSEA/VOMITING 2ND CHOICE; Start 05/16/18 at 19:45 Prochlorperazine (Compazine) 25 mg PRN Q12HR PRN NV NAUSEA/VOMITING; Start at 19:45 Al Hydroxide/Mg Hydroxide (Mylanta Plus Xs) 30 ml PRN Q3HRS PRN PO HEARTBURN / GAS; Start 05/16/18 at 19:45 Calcium Carbonate/ Glycine (Tums) 500 mg PRN Q3HRS PRN PO UPSET STOMACH; Start 05/16/18 at 19:45 Zolpidem Tartrate (Ambien) 5 mg PRN QHS PRN PO INSOMNIA, MAY REPEAT IN 1HR Last administered on 05/18/18at 20:57; Start 05/16/18 at 19:45 Oxycodone HCl (Roxicodone) 5 mg PRN Q3HRS PRN PO MODEARTE - SEVERE PAIN Last administered on 05/18/18at 20:57; Start 05/16/18 at 19:45 Morphine Sulfate (Morphine Sulfate) 2 mg PRN Q2HR PRN IV PAIN MILD; Start 05/16 at 19:45 Ketorolac Tromethamine (Toradol 30mg Vial) 30 mg PRN Q6HRS PRN IV PAIN PREVENTION/INFLAMMATION; Start 05/16/18 at 19:45; Stop 05/21/18 at 19:44 Acetaminophen (Tylenol) 650 mg PRN Q6HRS PRN PO Headaches, Temp > 101.5F; Start 05/16/18 at 19:45 Ibuprofen (Motrin) 400 mg PRN Q6HRS PRN PO MILD PAIN; Start 05/16/18 at 19:45 Magnesium Hydroxide (Milk Of Magnesia) 2,400 mg PRN Q12HR PRN PO CONSTIPATION 2ND CHOICE; Start 05/16/18 at 19:45 Enoxaparin Sodium (Lovenox 40mg Syringe) 40 mg DAILY SQ ; Start 05/17/18 at 09: 00; Stop 05/17/18 at 11:34; Status DC Haloperidol Lactate (Haldol Inj) 5 mg PRN Q6HRS PRN IVP AGITATION; Start at 19:45; Stop 05/16/18 at 23:01; Status DC Lorazepam (Ativan) 4 mg PRN Q2HRS PRN IV ANXIETY / AGITATION; Start 05/16/18 at 19:45; Stop 05/16/18 at 23:01; Status DC Acetaminophen (Tylenol) 325 mg Q6HRS PO ; Start 05/17/18 at 00:00; Status UNV Haloperidol (Haldol) 5 mg DAILY PO ; Start 05/17/18 at 09:00; Stop 05/17/18 at 10:02; Status DC Ondansetron HCl (Zofran Odt) 4 mg PRN Q4HRS PRN PO NAUSEA/VOMITING 1ST CHOICE; Start 05/16/18 at 19:45 Non-Formulary Medication (Haloperidol ) 25 mg QHS PO ; Start 05/16/18 at 21:00; Stop 05/17/18 at 10:02; Status DC Multivitamins (Thera M Plus) 1 tab DAILY PO Last administered on 05/20/18at 10: 59; Start 05/17/18 at 09:00 Nicotine Polacrilex (Nicorette Gum) 1 each PRN Q1HR PRN BC SMOKING CESSATION; Start 05/16/18 at 20:15 Polyethylene Glycol (miraLAX PACKET) 17 gm PRN DAILY PRN PO CONSTIPATION 1ST CHOICE; Start 05/17/18 at 09:00 Acetaminophen (Tylenol) 650 mg PRN Q4HRS PRN PO FEVER; Start 05/16/18 at 22:45 ; Stop 05/17/18 at 22:44; Status UNV Haloperidol Lactate (Haldol Inj) 5 mg PRN Q6HRS PRN IM AGITATION; Start at 23:15; Stop 05/17/18 at 20:46; Status DC Lorazepam (Ativan) 4 mg PRN Q2HRS PRN IM ANXIETY / AGITATION,1ST CHOICE Last administered on 05/20/18at 23:30; Start 05/16/18 at 23:15 Haloperidol (Haldol) 5 mg BID PO ; Start 05/17/18 at 21:00; Stop 05/17/18 at 21: 00; Status DC Olanzapine (ZyPREXA IM) 10 mg PRN Q8HRS PRN IM ANXIETY / AGITATION,2ND CHOICE Last administered on 05/20/18at 22:37; Start 05/17/18 at 20:45 Olanzapine (ZyPREXA) 5 mg BID PO Last administered on 05/20/18at 11:00; Start at 09:00 Ziprasidone (Geodon Im) 20 mg 1X ONCE IM Last administered on 05/18/18at 14:03 ; Start 05/18/18 at 14:00; Stop 05/18/18 at 14:01; Status DC Active Scripts Active Reported [Morphine Sulfate ] 0.5 Ml PO PRN Q4HRS PRN Lorazepam Intensol (Lorazepam) 2 Mg/1 Ml Oral.conc 2 Mg IM PRN Q4HRS PRN Hydroxyzine Hcl 25 Mg Tablet 1 Tab PO PRN Q4HRS PRN Hydrocodone-Apap 5-325 (Hydrocodone Bit/Acetaminophen) 1 Each Tablet 1 Tab PO PRN Q4HRS PRN Alum-Mag Hydroxide-Simeth Liq (Mag Hydrox/Al Hydrox/Simeth) 360 Ml Oral.susp 360 Ml PO PRN Q4HRS PRN Zofran Odt (Ondansetron) 4 Mg Tab.rapdis 1 Tab SL Q4HRS Tylenol (Acetaminophen) 325 Mg Tablet 325 Mg PO Q6HRS Nicorette (Nicotine Polacrilex) 2 Mg Gum 2 Mg BC PRN Q1HR PRN Miralax (Polyethylene Glycol 3350) 17 Gm Powd.pack 1 Pkt PO DAILY PRN Ibuprofen 600 Mg Tablet 600 Mg PO PRN Q6HRS PRN Haloperidol 10 Mg Tablet 10 Mg PO BID Haloperidol 5 Mg Tablet 5 Mg PO PRN Q6HRS PRN take 0800 and 1200 Vital Signs Vital Signs Date Time Temp Pulse Resp B/P (MAP) Pulse Ox O2 Delivery O2 Flow Rate FiO2 05/21/18 07:30 Room Air 05/21/18 02:43 73 32 139/79 (99) Labs Laboratory Tests Test 05/21/18 12:37 05/21/18 13:10 Urine Collection Type Unknown Urine Color Pam Urine Clarity Cloudy Urine pH 5.5 Urine Specific [place] 1.025 Urine Protein 30 mg/dL (NEG-TRACE) Urine Glucose (UA) Negative mg/dL (NEG) Urine Ketones (Stick) 15 mg/dL (NEG) Urine Blood Negative (NEG) Urine Nitrite Positive (NEG) Urine Bilirubin Small (NEG) Urine Urobilinogen Dipstick 1.0 mg/dL (0.2 mg/dL) Urine Leukocyte Esterase Large (NEG) Urine RBC Occ /HPF (0-2) Urine WBC 20-40 /HPF (0-4) Urine Squamous Epithelial Cells Few /LPF Urine Bacteria Many /HPF (0-FEW) White Blood Count 284.0 x10^3/uL (4.0-11.0) Red Blood Count 4.26 x10^6/uL (3.50-5.40) Hemoglobin 12.7 g/dL (12.0-15.5) Hematocrit 38.8 % (36.0-47.0) Mean Corpuscular Volume 91 fL (79-100) Mean Corpuscular Hemoglobin 30 pg (25-35) Mean Corpuscular Hemoglobin Concent 33 g/dL (31-37) Red Cell Distribution Width 15.4 % (11.5-14.5) Platelet Count 178 x10^3/uL (140-400) Neutrophils (%) (Auto) 5 % (31-73) Lymphocytes (%) (Auto) 92 % (24-48) Monocytes (%) (Auto) 3 % (0-9) Eosinophils (%) (Auto) 0 % (0-3) Basophils (%) (Auto) 0 % (0-3) Neutrophils # (Auto) 14.0 x10^3uL (1.8-7.7) Lymphocytes # (Auto) 261.7 x10^3/uL (1.0-4.8) Monocytes # (Auto) 7.1 x10^3/uL (0.0-1.1) Eosinophils # (Auto) 0.6 x10^3/uL (0.0-0.7) Basophils # (Auto) 0.6 x10^3/uL (0.0-0.2) Sodium Level 142 mmol/L (136-145) Potassium Level 4.6 mmol/L (3.5-5.1) Chloride Level 105 mmol/L (98-107) Carbon Dioxide Level 23 mmol/L (21-32) Anion Gap 14 (6-14) Blood Urea Nitrogen 19 mg/dL (7-20) Creatinine 0.9 mg/dL (0.6-1.0) Estimated GFR (Cockcroft-Gault) 63.2 Glucose Level 190 mg/dL (70-99) Calcium Level 9.4 mg/dL (8.5-10.1) Laboratory Tests Test 05/21/18 12:37 05/21/18 13:10 Urine Collection Type Unknown Urine Color Pam Urine Clarity Cloudy Urine pH 5.5 Urine Specific [place] 1.025 Urine Protein 30 mg/dL (NEG-TRACE) Urine Glucose (UA) Negative mg/dL (NEG) Urine Ketones (Stick) 15 mg/dL (NEG) Urine Blood Negative (NEG) Urine Nitrite Positive (NEG) Urine Bilirubin Small (NEG) Urine Urobilinogen Dipstick 1.0 mg/dL (0.2 mg/dL) Urine Leukocyte Esterase Large (NEG) Urine RBC Occ /HPF (0-2) Urine WBC 20-40 /HPF (0-4) Urine Squamous Epithelial Cells Few /LPF Urine Bacteria Many /HPF (0-FEW) White Blood Count 284.0 x10^3/uL (4.0-11.0) Red Blood Count 4.26 x10^6/uL (3.50-5.40) Hemoglobin 12.7 g/dL (12.0-15.5) Hematocrit 38.8 % (36.0-47.0) Mean Corpuscular Volume 91 fL (79-100) Mean Corpuscular Hemoglobin 30 pg (25-35) Mean Corpuscular Hemoglobin Concent 33 g/dL (31-37) Red Cell Distribution Width 15.4 % (11.5-14.5) Platelet Count 178 x10^3/uL (140-400) Neutrophils (%) (Auto) 5 % (31-73) Lymphocytes (%) (Auto) 92 % (24-48) Monocytes (%) (Auto) 3 % (0-9) Eosinophils (%) (Auto) 0 % (0-3) Basophils (%) (Auto) 0 % (0-3) Neutrophils # (Auto) 14.0 x10^3uL (1.8-7.7) Lymphocytes # (Auto) 261.7 x10^3/uL (1.0-4.8) Monocytes # (Auto) 7.1 x10^3/uL (0.0-1.1) Eosinophils # (Auto) 0.6 x10^3/uL (0.0-0.7) Basophils # (Auto) 0.6 x10^3/uL (0.0-0.2) Sodium Level 142 mmol/L (136-145) Potassium Level 4.6 mmol/L (3.5-5.1) Chloride Level 105 mmol/L (98-107) Carbon Dioxide Level 23 mmol/L (21-32) Anion Gap 14 (6-14) Blood Urea Nitrogen 19 mg/dL (7-20) Creatinine 0.9 mg/dL (0.6-1.0) Estimated GFR (Cockcroft-Gault) 63.2 Glucose Level 190 mg/dL (70-99) Calcium Level 9.4 mg/dL (8.5-10.1) Allergies Allergies Coded Allergies Type Severity Reaction Last Updated Verified Penicillins Allergy Intermediate "it makes me get fevers" last dose age 11 per pt 09/30/17 Yes fluphenazine Allergy Intermediate 09/24/16 Yes lithium Allergy Intermediate 09/24/16 Yes Disposition/Orders: Other (TO [facility]) Patient Instructions D/C PLANNING 40 MIN BASILIO ROQUE MD May 21, 2018 13:53
--- NOTE | 2018-05-21 13:54 | DISCH ---
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 Status: Acute CONDITION ON DISCHARGE: Guarded CODE STATUS: Code Status: DNR/DNI RETIREMENT: SNF STAY <30 DAYS: No HOSPICE: HOSPICE: Yes HOSPICE EVAL & TREAT: Yes LTAC: ADMIT TO LTAC: No POST DISCHARGE ORDERS: ACTIVITY ORDERS: No restrictions WEIGHT BEARING STATUS: No restrictions DIET AFTER DISCHARGE: Regular CHECKS AFTER DISCHARGE: CHECKS AFTER DISCHARGE: Check blood press - daily TREATMENT/EQUIPMENT ORDERS: ADAPTIVE EQUIPMENT NEEDED: None Physical Therapy For: Evalulation/Treatment Occupational Therapy For: Evaluation/Treatment DISCHARGE MEDICATIONS: Home Meds Reported Medications [Morphine Sulfate ] No Conflict Check, 0.5 ML PO PRN Q4HRS PRN for PAIN 05/17/18 Lorazepam (LORAZEPAM INTENSOL) 2 Mg/1 Ml Oral.conc, 2 MG IM PRN Q4HRS PRN for ANXIETY / AGITATION, MISC 05/17/18 Hydroxyzine Hcl (HYDROXYZINE HCL) 25 Mg Tablet, 1 TAB PO PRN Q4HRS PRN for ITCHING, #30 TAB 05/17/18 Hydrocodone Bit/Acetaminophen (HYDROCODONE-APAP 5-325 ) 1 Each Tablet, 1 TAB PO PRN Q4HRS PRN for PAIN, TAB 0 Refills 05/17/18 Mag Hydrox/Al Hydrox/Simeth (ALUM-MAG HYDROXIDE-SIMETH LIQ) 360 Ml Oral.susp, 360 ML PO PRN Q4HRS PRN for CONSTIPATION, MISC 09/30/17 Ondansetron (ZOFRAN ODT) 4 Mg Tab.rapdis, 1 TAB SL Q4HRS for VOMITING, #15 TAB 09/30/17 Acetaminophen (TYLENOL) 325 Mg Tablet, 325 MG PO Q6HRS for PAIN, #2 TAB 09/30/17 Nicotine Polacrilex (NICORETTE) 2 Mg Gum, 2 MG BC PRN Q1HR PRN for SMOKING CESSATION, EACH 09/30/17 Polyethylene Glycol 3350 (MIRALAX) 17 Gm Powd.pack, 1 PKT PO DAILY PRN for CONSTIPATION, PKT 09/30/17 Ibuprofen (IBUPROFEN) 600 Mg Tablet, 600 MG PO PRN Q6HRS PRN for INFLAMMATION, TAB 09/24/16 Haloperidol (HALOPERIDOL) 10 Mg Tablet, 10 MG PO BID, #30 TAB 2 Refills 09/24/16 Haloperidol (HALOPERIDOL) 5 Mg Tablet, 5 MG PO PRN Q6HRS PRN for ANXIETY / AGITATION, #60 TAB 1 Refill take 0800 and 1200 09/24/16 BASILIO ROQUE MD May 21, 2018 13:54
[2018-05-21 14:41] LABS: % LYMPHS 93 % (24-48); % MONOS 2 % (0-10); % SEGS 5 % (35-66)
[2018-05-21 14:42] LABS: PLT ESTIMATE ADEQUATE (ADEQUATE); SMUDGE CELLS PRESENT
[2018-05-21 14:43] LABS: POLYCHROMASIA SLIGHT
[2018-05-21 15:00] VITALS: BP 142/88
== END 2018-05-21 17:37 | DRG 885 ==
LOC: ER 17:31 → 5 NORTH 19:23
PROVIDERS: ADMIT Internal Medicine; ATTEND Internal Medicine
DX: F29 Unspecified psychosis not due to a substance or known physiological condition (principal); C95.90 Leukemia, unspecified not having achieved remission; F20.9 Schizophrenia, unspecified; F39 Unspecified mood [affective] disorder; F41.9 Anxiety disorder, unspecified; I10 Essential (primary) hypertension; D46.9 Myelodysplastic syndrome, unspecified; Z87.440 Personal history of urinary (tract) infections; Z79.899 Other long term (current) drug therapy; Z88.0 Allergy status to penicillin; Z88.8 Allergy status to other drugs, medicaments and biological substances
CPT/HCPCS: 36415; 80048; 81001; 85007; 85025; 93970; 96372; 96374; J1630; J2060; J3486; J3490; 99285-25